=== PATIENT | female | born 1960 | race Asian ===

== ENCOUNTER 2024-04-28 21:42 | Inpatient (IN) | payer MEDICARE, MEDICAID, SELFPAY ==
[2024-04-28] VITALS (10 sets, daily range): BP systolic 94–105; BP diastolic 67–78; PULSE 118–144; RESP 16–120; TEMP 36.1–36.5; O2SAT 90–100; BMI 19.1
--- NOTE | 2024-04-28 21:45 | EDNOTE_ITS ---
ED General RME/HPI General Chief complaint: Dizziness Stated complaint: DIZZINESS, WEAKNESS Time Seen by Provider: 04/28/24 21:42 Arrival date/time: 04/28/24 21:42 CC: Nausea vomiting, weakness HPI ongoing for 3 to 4 days. Patient admits she is a diabetic EMS report tachycardic in the 130s 140s with generalized weakness. Patient denies any physical pain but admits that she is weak and nauseated. Related Data Home Medications ?Medication ?Instructions ?Recorded ?Confirmed clopidogrel 75 mg tablet 1 tab PO QDAY ##30 12/24/16 10/19/23 duloxetine 30 mg capsule,delayed 30 mg PO BID 01/27/19 10/19/23 release gabapentin 600 mg tablet 600 mg PO TID 01/27/19 10/19/23 linaclotide 145 mcg capsule 145 mcg PO QDAY 01/27/19 10/19/23 (Linzess) aspirin 81 mg chewable tablet 81 mg PO QDAY 05/20/19 10/19/23 (Aspirin Childrens) sitagliptin phosphate 100 mg 100 mg PO QDAY 05/20/19 10/19/23 tablet (Januvia) Previous Rx's ?Medication ?Instructions ?Recorded insulin lispro 100 unit/mL See Rx Instructions .Route 09/22/19 subcutaneous pen .COMPLEX #3 mL atorvastatin 40 mg tablet 40 mg PO QPM #30 tabs 01/31/20 benazepril 40 mg tablet (Lotensin) 20 mg (1/2 x 40 mg) PO QDAY #0 tabs 01/31/20 insulin detemir U-100 100 unit/mL 20 unit (0.2 mL) SQ QAM Diabetes 01/31/20 (3 mL) subcutaneous pen (Levemir #0 mL FlexTouch U-100 Insulin) metoprolol tartrate 25 mg tablet 50 mg (2 x 25 mg) PO BID #60 tabs 08/26/21 omeprazole 40 mg capsule,delayed 40 mg PO BID #30 caps 08/26/21 release blood-glucose sensor (FreeStyle #2 ea 10/08/23 Reese 3 Sensor device) metoclopramide HCl 10 mg tablet 10 mg PO Q6H PRN nausea and 10/08/23 (Reglan) vomiting #60 tabs pantoprazole 40 mg tablet,delayed 40 mg PO QDAY #30 tabs 10/08/23 release (Protonix) Allergies Allergy/AdvReac Type Severity Reaction Status Date / Time No Known Allergies Allergy Verified 08/23/21 02:20 Review of Systems Review of Systems Narrative Review of Systems: GEN: No fever, no chills, no weight loss EYES: No discharge, no visual changes, no pain HEENT: No ear pain, no congestion, no sore throat PULM: No shortness of breath, no cough, no congestion CV: No chest pain, no dyspnea on exertion, no palpitations GI: + nausea, + vomiting, no diarrhea, no pain, no constipation : No frequency, no urgency, no dysuria MUSC/SKEL: No joint pain, no back pain SKIN: No rash PSYCH: No hallucinations, no depression HEME/LYMPH: No easy bleeding or bruising tendencies NEURO: + weakness, no headache ED Exam Narrative Physical exam: [General: Thin, borderline emaciated and considerable discomfort but not in any acute distress Head normocephalic HEENT: Within acceptable limits Neck is supple nontender Chest equal chest rise nontender to palpation Respiratory: Clear to auscultation no wheezes crackles or rubs CV: Rate rhythm is regular, tachycardic, no murmurs rubs or clicks Abdomen is flat, soft nontender no masses positive bowel sounds all 4 quadrants Back: No CVA tenderness no spinous process tenderness from cervical spine thoracic and lumbar spine Skin: Intact no petechiae rash induration ulceration or crepitus Extremities: Moving all extremity against resistance cap refill less than 2 seconds neurosensory intact Neuro: Awake alert oriented x3 Glascow coma 15 no focal deficits] Course Quality Measures none Orders Category Date Time Status EKG (ED ONLY) *Do not use* NOW Care 04/28/24 21:54 Completed Saline [Insert IV] NOW Care 04/28/24 21:44 Active EKG (ED Only) Stat Exams 04/28/24 21:54 Ordered ABG [Arterial Blood Gas] Stat Lab 04/28/24 22:42 Completed B-Type Natriuretic Peptide Stat Lab 04/28/24 23:01 Completed Beta Hydroxybutyrate Stat Lab 04/28/24 22:00 Completed CBC Stat Lab 04/28/24 22:00 Completed Comprehensive Metabolic Panel Stat Lab 04/28/24 22:00 Completed Creatine Kinase Stat Lab 04/28/24 22:00 Completed Drug Screen,Urine Stat Lab 04/29/24 01:19 Completed LDH (Lactate Dehydrogenase) Stat Lab 04/28/24 22:00 Completed Magnesium Stat Lab 04/28/24 22:00 Completed Partial Thromboplastin Time Stat Lab 04/28/24 22:00 Completed Phosphorous Stat Lab 04/28/24 22:00 Completed Procalcitonin Stat Lab 04/28/24 22:00 Completed Prothrombin Time with INR Stat Lab 04/28/24 22:00 Completed Troponin I Stat Lab 04/28/24 22:00 Completed Urinalysis Stat Lab 04/29/24 01:19 Completed Ondansetron Inj [Zofran Inj] Med 04/28/24 21:44 Discontinued 4 mg IV X1 ONE Ondansetron Inj [Zofran Inj] Med 04/28/24 22:36 Discontinued 4 mg IV X1 ONE Sodium Chloride 0.9% 1000 ml [Ns] 1,000 ml Med 04/28/24 21:44 Discontinued IV 999 mls/hr Sodium Chloride 0.9% 1000 ml [Ns] 1,000 ml Med 04/28/24 21:44 Discontinued IV 999 mls/hr Vital Signs Vital signs: Vital Signs Temperature 97.0 F 04/28/24 21:50 Pulse Rate 118 H 04/28/24 21:50 Respiratory Rate 19 04/28/24 21:50 Blood Pressure 99/67 04/28/24 21:50 Pulse Oximetry (%) 98 04/28/24 21:50 Oxygen Delivery Method Room Air 04/28/24 21:50 [facility] Patient data External records reviewed:: [facility] previous records and EMS form Clinical information provided by:: patient and EMS Social determinants that could affect healthcare access:: none Patient has the following chronic illnesses:: Diabetes How is presenting disease/condition affected by chronic disease/condition?: e xacerbated by Evaluation data The following diagnostics were reviewed and interpreted by me:: lab results, radiology exam(s) and EKG tracing(s) Lab and/or radiology exams considered but not ordered:: EKG performed at 2156 shows ventricular rate of 142 QRS of 78 QTc of 372 this is sinus tachycardia. Beta hydroxy is 6.4 Interpretation Summary: DKA, intractable nausea vomiting Medications Medications considered but not ordered:: None Medication administrations:: Medication Administration History Acetaminophen (Acetaminophen 325 Mg Tablet) 650 mg PO Q6H PRN PRN Reason: Fever >101.5 Stop: 05/29/24 00:00 Acetaminophen (Acetaminophen 325 Mg Tablet) 650 mg PO Q6H PRN PRN Reason: PAIN SCALE 1-3 (mild Stop: 05/29/24 00:00 Aspirin (Aspirin Ec 81 Mg Tabec) 81 mg PO QDAY [facility] Stop: 05/29/24 09:29 Last Admin: 04/29/24 09:54 Dose: 81 mg Documented By: Atorvastatin Calcium (Atorvastatin Calcium 20 Mg Tablet) 40 mg PO HS [facility] Stop: 05/29/24 20:59 Clopidogrel Bisulfate (Clopidogrel Bisulfate 75 Mg Tablet) 75 mg PO QDAY [facility] Stop: 05/29/24 08:59 Last Admin: 04/29/24 08:13 Dose: 75 mg Documented By: Dextrose (Dextrose 50%-Water Inj 50 Ml Syringe) 25 ml IV [id number] PRN PRN Reason: Blood Sugar - Low Duloxetine HCl (Duloxetine Hcl 30 Mg Capsule) 60 mg PO QDAY [facility] Stop: 05/29/24 08:59 Last Admin: 04/29/24 08:13 Dose: 60 mg Documented By: Heparin Sodium (Porcine) (Heparin Sod Inj 5000 Unit/Ml Vial) 5,000 unit SC Q12HR [facility] Stop: 05/13/24 08:59 Last Admin: 04/29/24 08:14 Dose: 5,000 unit Documented By: Co-signed By: ISAÍAS Insulin Human Regular (Myxredlin) 100 unit in 100 mls @ 5.216 mls/hr IV .[id number] PRN; Protocol PRN Reason: PER PROTOCOL Stop: 05/28/24 23:24 Last Titration: 04/29/24 10:55 Dose: 0 unit/kg/hr, 0 mls/hr Documented By: Co-signed By: KR Titration: 04/29/24 09:00 Dose: 0.025 unit/kg/hr, 1.304 mls/hr Documented By: Co-signed By: VL Titration: 04/29/24 08:00 Dose: 0.05 unit/kg/hr, 2.608 mls/hr Documented By: Co-signed By: VL Titration: 04/29/24 07:00 Dose: 0.05 unit/kg/hr, 2.608 mls/hr Documented By: Co-signed By: VL Titration: 04/29/24 06:00 Dose: 0.05 unit/kg/hr, 2.608 mls/hr Documented By: RH Co-signed By: KAA Titration: 04/29/24 05:00 Dose: 0.025 unit/kg/hr, 1.304 mls/hr Documented By: RH Co-signed By: KAA Titration: 04/29/24 04:00 Dose: 0.025 unit/kg/hr, 1.304 mls/hr Documented By: RH Co-signed By: KAA Titration: 04/29/24 03:00 Dose: 0.025 unit/kg/hr, 1.304 mls/hr Documented By: RH Co-signed By: KAA Titration: 04/29/24 02:00 Dose: 0.025 unit/kg/hr, 1.304 mls/hr Documented By: RH Co-signed By: KAA Titration: 04/29/24 01:03 Dose: 0.05 unit/kg/hr, 2.608 mls/hr Documented By: EE Co-signed By: DB Admin: 04/29/24 00:03 Dose: 0.1 unit/kg/hr, 5.216 mls/hr Documented By: RC Co-signed By: TANMAY Potassium Chloride (Kcl Ivpb) 10 meq in 100 mls @ 100 mls/hr IV .Q1H PRN PRN Reason: IF POTASSIUM LESS THAN 3.3 Stop: 05/28/24 23:55 Last Admin: 04/29/24 04:35 Dose: 100 mls/hr Documented By: Infusion: 04/29/24 04:35 Dose: Infused Documented By: Admin: 04/29/24 03:35 Dose: 100 mls/hr Documented By: RH Magnesium Sulfate (Magnesium Sulfate Ivpb) 2 gm in 50 mls @ 25 mls/hr IV .Q2H PRN PRN Reason: PER DKA PROTOCOL Stop: 05/28/24 23:55 Insulin Human Regular 100 unit (/ IV Miscellaneous Supplies) 100 mls @ 5.216 mls/hr IV .[id number] PRN; Protocol PRN Reason: PER PROTOCOL Stop: 05/28/24 23:55 Dextrose/Lactated Ringer's (D5-Lr) 1,000 mls @ 250 mls/hr IV .Q4H PRN PRN Reason: PER PROTOCOL Stop: 05/28/24 23:55 Last Admin: 04/29/24 02:13 Dose: 250 mls/hr Documented By: ANALIA Lactated Ringer's (Lactated Ringers) 1,000 mls @ 250 mls/hr IV .Q4H PRN PRN Reason: PER PROTOCOL Stop: 04/29/24 23:55 Potassium Chloride 20 meq/ (Lactated Ringer's) 1,010 mls @ 250 mls/hr IV .Q4H3M PRN PRN Reason: K LEVEL 3.3 TO 5.3mM/L Stop: 05/28/24 23:55 Potassium Chloride 40 meq/ (Lactated Ringer's) 1,020 mls @ 250 mls/hr IV .Q4H5M PRN PRN Reason: K LEVEL < 3.3 mM/L Stop: 05/28/24 23:55 Potassium Chloride 40 meq/ (Dextrose/Lactated Ringer's) 1,020 mls @ 250 mls/hr IV .Q4H5M PRN PRN Reason: K LEVEL < 3.3mM/L Stop: 05/28/24 23:55 Potassium Cl/Dextrose/Lact Ringer's (Kcl 20 Meq/L In D5-Lr) 20 meq in 1,000 mls @ 250 mls/hr IV .Q4H PRN PRN Reason: K LEVEL 3.3 TO 5.3 mM/L Stop: 05/28/24 23:55 Last Infusion: 04/29/24 09:00 Dose: 0 mls/hr Documented By: Admin: 04/29/24 06:20 Dose: 250 mls/hr Documented By: Potassium Chloride (Kcl Ivpb) 10 meq in 100 mls @ 50 mls/hr IV PRN PRN PRN Reason: K LEVEL 3.3 to 5.3 & BG > 200 Stop: 05/28/24 23:55 Last Admin: 04/29/24 02:12 Dose: 50 mls/hr Documented By: ANALIA Potassium Phosphate (Pot Phos 15 Mmol In Ns 250 Ml) 15 mmol in 250 mls @ 62.5 mls/hr IV PRN PRN PRN Reason: Phosphate <= 1mg/dL Stop: 05/28/24 23:55 Sodium Phosphate 15 mmol/ (Sodium Chloride) 255 mls @ 62.5 mls/hr IV .Q4H5M PRN PRN Reason: Phosphate <= 1mg/dL and K> than 5.3 Stop: 05/28/24 23:55 Ceftriaxone Sodium/Dextrose (Rocephin/D5w 1gm Iv Premix) 50 mls @ 100 mls/hr IV HS [facility] Stop: 05/06/24 00:25 Potassium Phosphate (Pot Phos 15 Mmol In Ns 250 Ml) 15 mmol in 250 mls @ 62.5 mls/hr IV Q4H [facility] Stop: 04/29/24 16:50 Last Admin: 04/29/24 08:59 Dose: 62.5 mls/hr Documented By: MR Insulin Glargine (Insulin Glargine (Lantus) 5 Unit/0.05 Ml (Per 5 Units)) 20 unit SC QDAY [facility] Stop: 05/29/24 09:14 Last Admin: 04/29/24 09:54 Dose: 20 unit Documented By: MR Co-signed By: LARISSA Lisinopril (Lisinopril 20 Mg Tablet) 40 mg PO QDAY [facility] Stop: 05/29/24 08:59 Last Admin: 04/29/24 08:13 Dose: 40 mg Documented By: MR Metoprolol Succinate (Metoprolol Succinate Xl 25 Mg Tabcr) 100 mg PO QDAY [facility] Stop: 05/29/24 08:59 Last Admin: 04/29/24 08:12 Dose: 100 mg Documented By: MR Morphine Sulfate (Morphine Sulf Inj 10 Mg/Ml Vial) 2 mg IVP Q2H PRN PRN Reason: PAIN SCALE 7-10 (Severe Stop: 05/04/24 00:00 Ondansetron HCl (Ondansetron Inj 2 Mg/Ml Inj 2 Ml) 4 mg IV Q6H PRN; Protocol PRN Reason: NAUSEA OR VOMITING Stop: 05/29/24 00:00 Pantoprazole Sodium (Pantoprazole Inj 40 Mg Vial) 40 mg IVP QDAY [facility] Stop: 05/29/24 00:04 Last Admin: 04/29/24 08:13 Dose: 40 mg Documented By: Admin: 04/29/24 01:27 Dose: 40 mg Documented By: CCT Potassium Phos/Sodium Phos ([facility] 1 Packet (1.5 Gm)) 2 packet PO BID GIOVANNA Stop: 05/03/24 09:29 Last Admin: 04/29/24 09:54 Dose: 2 packet Documented By: Sennosides (Senna Tablet) 1 tab PO QDAY GIOVANNA; Protocol Stop: 05/29/24 08:59 Last Admin: 04/29/24 08:14 Dose: 1 tab Documented By: Sodium Bicarbonate (Sodium Bicarb Inj 8.4% Syr 50 Ml Syringe) 50 ml IV PRN PRN PRN Reason: For ph <= to 7.0 Stop: 05/28/24 23:55 Tramadol HCl (Tramadol Hcl 50 Mg Tablet) 50 mg PO Q6HR PRN PRN Reason: PAIN SCALE 4-6 (Moderate Stop: 05/04/24 00:00 Discontinued Medications Sodium Chloride (Ns) 1,000 mls @ 999 mls/hr IV .Q1H1M ONE Stop: 04/28/24 22:44 Last Infusion: 04/28/24 23:36 Dose: Infused Documented By: Admin: 04/28/24 21:57 Dose: 999 mls/hr Documented By: CCT Sodium Chloride (Ns) 1,000 mls @ 999 mls/hr IV .Q1H1M ONE Stop: 04/28/24 22:44 Last Infusion: 04/29/24 00:38 Dose: Infused Documented By: Admin: 04/28/24 21:57 Dose: 999 mls/hr Documented By: CCT Lactated Ringer's (Lactated Ringers) 1,000 mls @ 999 mls/hr IV .Q1H1M ONE Stop: 04/29/24 00:19 Last Admin: 04/29/24 00:35 Dose: 999 mls/hr Documented By: CMN(2) Ceftriaxone Sodium/Dextrose (Rocephin/D5w 1gm Iv Premix) 50 mls @ 100 mls/hr IV X1 ONE Stop: 04/29/24 00:59 Last Admin: 04/29/24 01:48 Dose: 100 mls/hr Documented By: CCT Ondansetron HCl (Ondansetron Inj 2 Mg/Ml Inj 2 Ml) 4 mg IV X1 ONE; Protocol Stop: 04/28/24 21:45 Last Admin: 04/28/24 22:40 Dose: Not Given Documented By: CCT Non-Admin Reason: Cancelled by Provider Ondansetron HCl (Ondansetron Inj 2 Mg/Ml Inj 2 Ml) 4 mg IV X1 ONE; Protocol Stop: 04/28/24 22:37 Last Admin: 04/28/24 22:41 Dose: 4 mg Documented By: CCT None Consultations Consultation(s) initiated? (list below): No Diagnosis Differential Diagnosis ED Complaint MDM: DKA gastroparesis renal failure Most likely diagnosis given after review of the tests above:: DKA nausea vomiting Admission Indicated Admission indicated?: indicated Explain why admission is indicated or not indicated:: Quires further medical management Admission Request Was there a request for admission?: No Disposition Plan Disposition Plan: Admit Medical Decision Making Differential Diagnosis Differential Diagnosis: DKA gastroparesis renal failure Lab Data 04/29/24 07:53 04/29/24 07:53 Labs: Lab Results 04/28/24 04/28/24 04/28/24 Range/Units 22:00 22:42 23:01 WBC 21.0 H (3.6-11.0) Thou/mm3 RBC 5.16 (4.00-5.20) Miln/mm3 Hgb 15.0 (12.0-16.0) g/dL Hct 44.8 (36.0-46.0) % MCV 87 (80-100) fL MCH 29.1 (25.0-35.0) pg MCHC 33.5 (31.0-37.0) g/dl RDW Std Deviation 45.1 (36.4-46.3) fL Plt Count 287 (140-440) Thou/mm3 Neut % (Auto) 85 H (37-80) % Lymph % (Auto) 8 L (10-50) % [place] % (Auto) 6 (0-12) % Eos % (Auto) 0 (0-10) % Baso % (Auto) 0 (0-2.5) % Neut # (Auto) 17.8 H (1.8-7.7) Thou/mm3 Lymph # (Auto) 1.8 (1.0-4.8) Thou/mm3 [place] # (Auto) 1.3 H (0.0-0.8) Thou/mm3 Eos # (Auto) 0.0 (0.0-0.5) Thou/mm3 Baso # (Auto) 0.0 (0.0-0.2) Thou/mm3 Immature Gran # (Auto) 0.09 H (0.00-0.00) Thou/mm3 Absolute Nucleated RBC 0.00 (0.00-0.00) Thou/mm3 Immature Gran % 0 (0-0) % Nucleated RBC % 0 (0) /100 WBC PT 9.7 (9.0-12.2) Seconds INR 0.9 (0.9-1.3) APTT 25.9 (22.0-36.0) Seconds Puncture Site Right Brachial ABG pH 7.29 L (7.35-7.45) ABG pCO2 19 L* (32.0-48.0) mmHg ABG pO2 122 H (83-108) mmHg ABG HCO3 9 L* (20-26) mEq/L ABG O2 Saturation 98 (91-98) % ABG Base Excess -15 L (-3-3) FiO2 21 % Sodium 131 L (136-145) mMol/L Potassium 4.5 (3.4-5.1) mMol/L Chloride 97 L (98-107) mMol/L Carbon Dioxide < 10.0 L* (20.0-31.0) mMol/L Anion Gap 24 H (7-16) BUN 41 H (9-23) mg/dL Creatinine 1.5 H (0.6-1.3) mg/dL Estim Creat Clear Calc 32.4 L (>60) mL/min eGFR 39 L (60 - ) See Note BUN/Creatinine Ratio 27 H (12-20) Ratio Glucose 313 H (74-106) mg/dL Calculated Osmolality 284 (275-295) Calcium 10.8 H (8.3-10.6) mg/dL Corrected Calcium 10.8 H (8.5-10.1) mg/dL Phosphorus 4.5 (2.4-5.1) mg/dL Magnesium 2.7 H (1.6-2.6) mg/dL Total Bilirubin 0.8 (0.3-1.2) mg/dL AST < 8 (0-34) U/L ALT < 7 L (10-49) U/L Alkaline Phosphatase 81 (46-116) U/L Lactate Dehydrogenase 247 H (120-246) U/L Total Creatine Kinase 56 (34-171) U/L Troponin I 0.450 H* (0.0-0.045) ng/mL B-Natriuretic Peptide 581 H* (0-100) pg/mL Total Protein 7.5 (5.7-8.2) gm/dL Albumin 4.3 (3.4-4.8) gm/dL Globulin 3.2 (2.3-3.5) gm/dL Albumin/Globulin Ratio 1.3 (1.2-2.2) Beta-Hydroxybutyrate/Acetoacetate 6.4 H (<0.6) mmol/L Procalcitonin 0.61 H (0.0-0.49) ng/ml Discharge Plan Plan Patient Disposition: Admit Acute Care w/in Hospital Patient condition on transfer: Stable Problem List Clinical Impression: DKA (diabetic ketoacidoses), Intractable nausea and vomiting PA/HOSPITAL CLINIC ASSISTANT Supervising Physician PA/HOSPITAL CLINIC ASSISTANT Supervising Physician: Ismael Jerez ENP
[2024-04-28] MEDS: SODIUM CHLORIDE 0.9% 1000 ML 1,000 ML 999 ML IV ×2 (21:57)
[2024-04-28 22:14] LABS: Basophils % (Auto) 0 % (0-2.5); Eosinophils % (Auto) 0 % (0-10); Hematocrit 44.8 % (36.0-46.0); Immature Granulocytes % (Auto) 0 % (0-0); Immature Granulocytes Auto 0.09 Thou/mm3 (0.00-0.00); Lymphocytes # (Auto) 1.8 Thou/mm3 (1.0-4.8); Lymphocytes % (Auto) 8 % (10-50); Mean Corpuscular HGB Conc 33.5 g/dl (31.0-37.0); Mean Corpuscular Hemoglobin 29.1 pg (25.0-35.0); Mean Corpuscular Volume 87 fL (80-100); Monocytes # (Auto) 1.3 Thou/mm3 (0.0-0.8); Monocytes % (Auto) 6 % (0-12); Neutrophils # (Auto) 17.8 Thou/mm3 (1.8-7.7); Neutrophils % (Auto) 85 % (37-80); Nucleated Red Blood Cell % 0 /100 WBC (0); Platelet Count 287 Thou/mm3 (140-440); RDW Standard Deviation 45.1 fL (36.4-46.3); Red Blood Count 5.16 Miln/mm3 (4.00-5.20)
[2024-04-28 22:25] LABS: Beta Hydroxybutyrate 6.4 mmol/L (<0.6)
--- NOTE | 2024-04-28 22:39 | PD.EDADDENDU ---
Emergency Room Addendum Addendum Narrative: 223: Care assumed from Ismael Jerez NP. Past medical, surgical, social and family history reviewed. Vitals and home medications reviewed. Results and treatment plan discussed. I will assume the care of the patient at this time and will follow the patient. Please refer to the emergency department record for history and examination from initial visit. WBC count is elevated at 21.0, Carbon Dioxide is less than 10, Glucose is 313, Anion Gap is 24, Creatinine is 1.5, Troponin is elevated at 0.450, Procalcitonin is elevated at 0.61, Beta Hydroxybutyrate is elevated at 6.4, according to my interpretation. Will consult an admission to the hospitalist. 2338: Discussed case with [Dr. Skelton] from Hospitalist service regarding admission. Discussed patients ED course, exam findings, labs, and radiology results. The Hospitalist [agrees] to accept the patient for admission. Critical Care Time: 45 minutes The high probability of sudden, clinically significant deterioration in the patient?s condition required the highest level of my preparedness to intervene urgently. The services I provided to this patient were to treat and/or prevent clinically significant deterioration. Services included the following: chart data review, reviewing nursing notes and/or old charts, documentation time, industrial rehabilitation consultant collaboration regarding findings and treatment options, medication orders and management, direct patient care, vital sign assessments and ordering, interpreting and reviewing diagnostic studies and lab tests. Aggregate critical care time includes only time during which I was engaged in work directly related to the patient?s care, as described above, whether at bedside or elsewhere in the Emergency Department. It did not include time spent performing other reported procedures or the services of residents, students, nurses or physician assistants.
[2024-04-28] MEDS: ONDANSETRON INJ 2 MG/ML INJ 2 ML 4 MG IV (22:41)
[2024-04-28 22:47] LABS: Base Excess -15 (-3-3); HCO3 9 mEq/L (20-26); Inspired Oxygen, FIO2 21 %; O2 Saturation 98 % (91-98); PCO2 19 mmHg (32.0-48.0); PO2 122 mmHg (83-108); pH, Arterial 7.29 (7.35-7.45)
[2024-04-28 22:48] LABS: Allen Test Performed/OK; Puncture Site Right Brachial
[2024-04-28 22:51] LABS: INR 0.9 (0.9-1.3); Partial Thromboplastin Time 25.9 Seconds (22.0-36.0); Prothrombin Time 9.7 Seconds (9.0-12.2)
[2024-04-28 23:12] LABS: Alanine Aminotransferase < 7 U/L (10-49); Albumin, Serum 4.3 gm/dL (3.4-4.8); Albumin/Globulin Ratio 1.3 (1.2-2.2); Alkaline Phosphatase 81 U/L (46-116); Anion Gap 24 (7-16); Aspartate Amino Transferase < 8 U/L (0-34); BUN/Creatinine Ratio 27 Ratio (12-20); Bilirubin,Total 0.8 mg/dL (0.3-1.2); Blood Urea Nitrogen 41 mg/dL (9-23); Calcium 10.8 mg/dL (8.3-10.6); Calcium (Corrected) 10.8 mg/dL (8.5-10.1); Chloride 97 mMol/L (98-107); Creatine Kinase 56 U/L (34-171); Creatinine (Component) 1.5 mg/dL (0.6-1.3); Estimated Creatinine Clearance 32.4 mL/min (>60); Globulin 3.2 gm/dL (2.3-3.5); Glucose 313 mg/dL (74-106); Magnesium 2.7 mg/dL (1.6-2.6); Osmolality,Calculated 284 (275-295); Potassium 4.5 mMol/L (3.4-5.1); Procalcitonin 0.61 ng/ml (0.0-0.49); Sodium 131 mMol/L (136-145); Total Protein 7.5 gm/dL (5.7-8.2); eGFR 39 See Note
[2024-04-28 23:15] LABS: Carbon Dioxide < 10.0 mMol/L (20.0-31.0)
--- NOTE | 2024-04-28 23:18 | XR_ITS ---
Examination: AP chest single view Technique: AP portable upright chest single view Exam date and time: April 28, 2024 11:29 PM Comparison October 19, 2023 Indications: Admission chest x-ray, history chest pain shortness of breath September 2023 Findings: Normal heart size Lungs are clear Moderate osteopenia Impression: No active disease
[2024-04-29] VITALS (25 sets, daily range): BP systolic 109–146; BP diastolic 62–90; PULSE 99–149; RESP 13–99; TEMP 36.1–36.6; O2SAT 93–100; BMI 29.2
[2024-04-29] MEDS: INSULIN REG 100 UNITS/100 ML 100 UNIT/100 ML BAG 5.216 UNIT IV (00:03)
--- NOTE | 2024-04-29 00:05 | ECHO_ITS ---
Transthoracic Echo Report Ht (in): 65 Wt (lb): 115 Exam Location: Portable Status: Inpatient Ground Layer: Mitzy Bull Indications: Procedure Performed: BP: 146 / 89 HR: 149 Rhythm: Tachycardia Technical Quality: Fair MEASUREMENTS (Male / Female) Normal Values 2D ECHO LV Diastolic Diameter PLAX 3.6 cm 4.2 - 5.9 / 3.9 - 5.3 cm LV Systolic Diameter PLAX 2.6 cm IVS Diastolic Thickness 0.9 cm 0.6 - 1.0 / 0.6 - 0.9 cm LVPW Diastolic Thickness 1.1 cm 0.6 - 1.0 / 0.6 - 0.9 cm LV Relative Wall Thickness 0.6 LVOT Diameter 1.6 cm LA Volume Index 15.6 cm?/m? 16 - 28 cm?/m? Ascending Aorta Diameter 3.1 cm M-MODE Aortic Root Diameter MM 2.8 cm LA Systolic Diameter MM 2.9 cm LA Ao Ratio MM 1.0 AV Cusp Separation MM 1.8 cm DOPPLER AV Peak Velocity 116.0 cm/s AV Peak Gradient 5.4 mmHg AV Mean Gradient 3.0 mmHg AV Velocity Time Integral 17.7 cm LVOT Peak Velocity 106.0 cm/s LVOT Peak Gradient 4.5 mmHg LVOT Velocity Time Integral 18.5 cm LVOT Cardiac Index 3597.5 cm?/min?m? AV Area Cont Eq vti 2.1 cm? AV Area Cont Eq pk 1.8 cm? MV Peak Velocity 110.0 cm/s MV Peak Gradient 4.8 mmHg MV Mean Velocity 64.9 cm/s MV Mean Gradient 2.0 mmHg MV Area PHT 6.3 cm? Mitral E Point Velocity 71.3 cm/s Mitral A Point Velocity 110.0 cm/s Mitral E to A Ratio 0.6 LV E' Lateral Velocity 8.1 cm/s Mitral E to LV E' Lateral Ratio 8.9 LV E' Septal Velocity 4.8 cm/s Mitral E to LV E' Septal Ratio 14.9 TR Peak Velocity 197.0 cm/s TR Peak Gradient 15.5 mmHg FINDINGS Left Ventricle Normal left ventricular size, wall thickness, systolic function with no obvious regional wall motion abnormalities. The ejection fraction is visually estimated at 50-55%. Right Ventricle The right ventricle is normal in size and systolic function. The estimated right ventricular systoli c pressure, 20 mmHg. RAP 5. Left Atrium The left atrium is normal by two-dimensional, color flow and Doppler imaging with no structural abnormalities, no thrombus formation present. Right Atrium The right atrium is normal by two-dimensional imaging, color flow and Doppler imaging with no struct ural abnormalities, no thrombus formation present. Atrial Septum The interatrial septum appears normal with no evidence of a shunt. Aorta The aorta is normal by two-dimensional, color flow and Doppler interrogation. Mitral Valve The mitral valve is normal by two-dimensional, color flow and Doppler interrogation. There is trace mitral valve regurgitation. Aortic Valve The aortic valve is trileaflet and normal by two-dimensional, color flow and Doppler interrogation. There is no significant aortic valve regurgitation. Tricuspid Valve The tricuspid valve is normal by two-dimensional, color flow and Doppler interrogation. There is tra ce tricuspid valve regurgitation. Pulmonic Valve The pulmonic valve is not well visualized. There is no significant pulmonic valve regurgitation. Vessels The pulmonary artery appears normal. The inferior vena cava pulmonary and hepatic veins appear bo l. Pericardium The pericardium is normal by two-dimensional imaging. There is no significant pericardial effusion. CONCLUSIONS Indication: Stent and MS The transthoracic study is normal by two-dimensional, color flow imaging and Doppler interrogation. Normal LV size and function. LV EF 55-60% Normal RV size and function Trace mitral and trace tricuspid regurgitation Missy Walker (Electronically Signed) Final Date: 29 April 2024 17:06
--- NOTE | 2024-04-29 00:14 | ESHP_ITS ---
Documentation for date of: 04/29/24 [facility] History of Present Illness Chief complaint: intractable nausea and decreased appetite History of present illness: Patient is a 63-year-old female with past medical history significant for type 2 diabetes, hyperlipidemia, hypertension, CAD status post 1 cardiac stent in LAD, and KS, depression, anxiety, presented to the ED for having vomiting for the last 4 days. Associated symptoms include lightheadedness, decreased appetite as well as itchy throat that started also 4 days ago. Patient denies any abdominal pain, sweating, chills, chest pain, dysuria, shortness of breath, cough, sick contacts, diarrhea, constipation. She reports taking all her medications last night, except for her insulin. ROS: As mentioned above Past medical history: As mentioned above Past surgical history: hand surgeries Medications: Insulin 8 units Lantus daily, metformin 1000 mg twice daily, cyclobenzaprine 5 mg daily, atorvastatin 40 mg at bedtime, Plavix 75 mg daily, duloxetine 60 mg daily, Farxiga 10 mg daily, Zofran, metoprolol succinate 100 mg daily, meclizine 25 mg as needed Social history: Patient has a 30 pack smoking history, however quit smoking 20 years ago. Patient denies any alcohol or illicit drug use. Family history: Diabetes in 3 siblings and son, stroke in aunt Allergies: NKDA Patient was admitted to ICU for further management of DKA. Review of Systems Review of Systems Systems Reviewed: All systems reviewed, normal except as documented Exam Vital Signs Temp Pulse Resp BP Pulse Ox O2 Del Method 97.0 F 144 H 18 94/78 100 Room Air 04/28/24 22:50 04/28/24 22:50 04/28/24 22:50 04/28/24 22:50 04/28/24 22:50 04/28/24 22:50 Narrative Exam General Appearance: Pt in mild acute distress laying comfortably in bed. HEENT: NC/AT, no scleral icterus, no conjunctival pallor, dry mucous membranes. Lungs: CTAB, no wheezes or crackles appreciated. CVS: RRR, S1/S2 heard, no murmurs or rubs appreciated. ABD: Soft, non-tender, non-distended, BS + in all 4 quadrants. EXT: No deformity/edema/lesions/cyanosis/clubbing, radial pulses 2+ BL, DP pulses 2 + BL. SKIN: Skin exam normal without any rashes. Neuro: A&O x 3. No gross neurological deficits. Motor and sensory grossly intact in B/L UL and LL. Psych: Appropriate mood and affect Results: Labs 04/28/24 22:00 04/29/24 02:51 Labs: Short CBC 04/28/24 Range/Units 22:00 WBC 21.0 H (3.6-11.0) Thou/mm3 Hgb 15.0 (12.0-16.0) g/dL Hct 44.8 (36.0-46.0) % Plt Count 287 (140-440) Thou/mm3 BMP 04/28/24 22:00 Sodium 131 L Potassium 4.5 Chloride 97 L Carbon Dioxide < 10.0 L* BUN 41 H Creatinine 1.5 H Glucose 313 H Calcium 10.8 H Cardiac Enzymes 04/28/24 Range/Units 22:00 Total Creatine Kinase 56 (34-171) U/L Troponin I 0.450 H* (0.0-0.045) ng/mL Liver Function 04/28/24 Range/Units 22:00 Total Bilirubin 0.8 (0.3-1.2) mg/dL AST < 8 (0-34) U/L ALT < 7 L (10-49) U/L Alkaline Phosphatase 81 (46-116) U/L Albumin 4.3 (3.4-4.8) gm/dL ABG Interpretation ABG results: 04/28/24 22:42 ABG pH 7.29 L ABG pCO2 19 L* ABG pO2 122 H ABG HCO3 9 L* ABG O2 Saturation 98 ABG Base Excess -15 L Quality Measures Quality Measures VTE prophylaxis Medications Home Medications and Allergies Home Medications ?Medication ?Instructions ?Recorded ?Confirmed ?Type clopidogrel 75 mg tablet 1 tab PO QDAY ##30 12/24/16 10/19/23 History duloxetine 30 mg capsule,delayed 30 mg PO BID 01/27/19 10/19/23 History release gabapentin 600 mg tablet 600 mg PO TID 01/27/19 10/19/23 History linaclotide 145 mcg capsule 145 mcg PO QDAY 01/27/19 10/19/23 History (Linzess) aspirin 81 mg chewable tablet 81 mg PO QDAY 05/20/19 10/19/23 History (Aspirin Childrens) sitagliptin phosphate 100 mg 100 mg PO QDAY 05/20/19 10/19/23 History tablet (Januvia) Allergies Allergy/AdvReac Type Severity Reaction Status Date / Time No Known Allergies Allergy Verified 08/23/21 02:20 Visit Medications Acetaminophen (Acetaminophen 325 Mg Tablet) 650 mg PO Q6H PRN PRN Reason: Fever >101.5 Stop: 05/29/24 00:00 Acetaminophen (Acetaminophen 325 Mg Tablet) 650 mg PO Q6H PRN PRN Reason: PAIN SCALE 1-3 (mild Stop: 05/29/24 00:00 Atorvastatin Calcium (Atorvastatin Calcium 20 Mg Tablet) 40 mg PO HS GIOVANNA Stop: 05/29/24 20:59 Clopidogrel Bisulfate (Clopidogrel Bisulfate 75 Mg Tablet) 75 mg PO QDAY [facility] Stop: 05/29/24 08:59 Dextrose (Dextrose 50%-Water Inj 50 Ml Syringe) 25 ml IV [id number] PRN PRN Reason: Blood Sugar - Low Duloxetine HCl (Duloxetine Hcl 30 Mg Capsule) 60 mg PO QDAY [facility] Stop: 05/29/24 08:59 Heparin Sodium (Porcine) (Heparin Sod Inj 5000 Unit/Ml Vial) 5,000 unit SC Q12HR GIOVANNA Stop: 05/13/24 08:59 Lactated Ringer's (Lactated Ringers) 1,000 mls @ 999 mls/hr IV .Q1H1M ONE Stop: 04/29/24 00:19 Insulin Human Regular (Myxredlin) 100 unit in 100 mls @ 5.216 mls/hr IV .[id number] PRN; Protocol PRN Reason: PER PROTOCOL Stop: 05/28/24 23:24 Last Admin: 04/29/24 00:03 Dose: 0.1 unit/kg/hr, 5.216 mls/hr Potassium Chloride (Kcl Ivpb) 10 meq in 100 mls @ 100 mls/hr IV .Q1H PRN PRN Reason: IF POTASSIUM LESS THAN 3.3 Stop: 05/28/24 23:55 Magnesium Sulfate (Magnesium Sulfate Ivpb) 2 gm in 50 mls @ 25 mls/hr IV .Q2H PRN PRN Reason: PER DKA PROTOCOL Stop: 05/28/24 23:55 Insulin Human Regular 100 unit (/ IV Miscellaneous Supplies) 100 mls @ 5.216 mls/hr IV .[id number] PRN; Protocol PRN Reason: PER PROTOCOL Stop: 05/28/24 23:55 Dextrose/Lactated Ringer's (D5-Lr) 1,000 mls @ 250 mls/hr IV .Q4H PRN PRN Reason: PER PROTOCOL Stop: 05/28/24 23:55 Lactated Ringer's (Lactated Ringers) 1,000 mls @ 250 mls/hr IV .Q4H PRN PRN Reason: PER PROTOCOL Stop: 04/29/24 23:55 Potassium Chloride 20 meq/ (Lactated Ringer's) 1,010 mls @ 250 mls/hr IV .Q4H3M PRN PRN Reason: K LEVEL 3.3 TO 5.3mM/L Stop: 05/28/24 23:55 Potassium Chloride 40 meq/ (Lactated Ringer's) 1,020 mls @ 250 mls/hr IV .Q4H5M PRN PRN Reason: K LEVEL < 3.3 mM/L Stop: 05/28/24 23:55 Potassium Chloride 40 meq/ (Dextrose/Lactated Ringer's) 1,020 mls @ 250 mls/hr IV .Q4H5M PRN PRN Reason: K LEVEL < 3.3mM/L Stop: 05/28/24 23:55 Potassium Cl/Dextrose/Lact Ringer's (Kcl 20 Meq/L In D5-Lr) 20 meq in 1,000 mls @ 250 mls/hr IV .Q4H PRN PRN Reason: K LEVEL 3.3 TO 5.3 mM/L Stop: 05/28/24 23:55 Potassium Chloride (Kcl Ivpb) 10 meq in 100 mls @ 50 mls/hr IV PRN PRN PRN Reason: K LEVEL 3.3 to 5.3 & BG > 200 Stop: 05/28/24 23:55 Potassium Phosphate (Pot Phos 15 Mmol In Ns 250 Ml) 15 mmol in 250 mls @ 62.5 mls/hr IV PRN PRN PRN Reason: Phosphate <= 1mg/dL Stop: 05/28/24 23:55 Sodium Phosphate 15 mmol/ (Sodium Chloride) 255 mls @ 62.5 mls/hr IV .Q4H5M PRN PRN Reason: Phosphate <= 1mg/dL and K> than 5.3 Stop: 05/28/24 23:55 Lisinopril (Lisinopril 20 Mg Tablet) 40 mg PO QDAY [facility] Stop: 05/29/24 08:59 Metoprolol Succinate (Metoprolol Succinate Xl 25 Mg Tabcr) 100 mg PO QDAY [facility] Stop: 05/29/24 08:59 Morphine Sulfate (Morphine Sulf Inj 10 Mg/Ml Vial) 2 mg IVP Q2H PRN PRN Reason: PAIN SCALE 7-10 (Severe Stop: 05/04/24 00:00 Ondansetron HCl (Ondansetron Inj 2 Mg/Ml Inj 2 Ml) 4 mg IV Q6H PRN; Protocol PRN Reason: NAUSEA OR VOMITING Stop: 05/29/24 00:00 Pantoprazole Sodium (Pantoprazole Inj 40 Mg Vial) 40 mg IVP QDAY [facility] Stop: 05/29/24 00:04 Sennosides (Senna Tablet) 1 tab PO QDAY [facility]; Protocol Stop: 05/29/24 08:59 Sodium Bicarbonate (Sodium Bicarb Inj 8.4% Syr 50 Ml Syringe) 50 ml IV PRN PRN PRN Reason: For ph <= to 7.0 Stop: 05/28/24 23:55 Tramadol HCl (Tramadol Hcl 50 Mg Tablet) 50 mg PO Q6HR PRN PRN Reason: PAIN SCALE 4-6 (Moderate Stop: 05/04/24 00:00 Discontinued Medications Sodium Chloride (Ns) 1,000 mls @ 999 mls/hr IV .Q1H1M ONE Stop: 04/28/24 22:44 Last Infusion: 04/28/24 23:36 Dose: Infused Sodium Chloride (Ns) 1,000 mls @ 999 mls/hr IV .Q1H1M ONE Stop: 04/28/24 22:44 Last Admin: 04/28/24 21:57 Dose: 999 mls/hr Ondansetron HCl (Ondansetron Inj 2 Mg/Ml Inj 2 Ml) 4 mg IV X1 ONE; Protocol Stop: 04/28/24 21:45 Last Admin: 04/28/24 22:40 Dose: Not Given Ondansetron HCl (Ondansetron Inj 2 Mg/Ml Inj 2 Ml) 4 mg IV X1 ONE; Protocol Stop: 04/28/24 22:37 Last Admin: 04/28/24 22:41 Dose: 4 mg Assessment & Plan Plan Patient is a 63-year-old female with past medical history significant for type 2 diabetes, hyperlipidemia, hypertension, CAD status post 1 cardiac stent in LAD, and KS, depression, anxiety, presented to the ED for having vomiting for the last 4 days admitted to ICU for further management of DKA. NEURO #Hx of CVA CVA in 2014 and 2018, and TIA in 2019 Currently A&O x 3, stable Patient states she stopped taking aspirin -Continue with Plavix 75mg QD #Hx of vertigo Patient takes home Meclizine as needed -Consider resuming if patient complaints of symptoms CARDIO #Elevated Troponin DDx: most likely due to demand ischemia 2/2 hypovolemic status Patient given a total of 2L NS and 1L LR bolus -Ordered EKG -Trend Troponin Q8h #Hx of CAD s/p LAD stent #Hx of HTN #Hx of HLD Elevated BNP of 581. Bedside echo shows EF of 55-60% -Continue with Plavix 75mg QD, Metoprolol Succinate 100mg QD, and Atorvastatin 40mg HS -Patient takes home Benzapril, and will start dose equivalent dose with Lisinopril -Last echo was in 10/11, and ordered repeat Echo PULM No active issues GI/FEN #Intractable nausea -Continue with Zofran PRN -Will keep patient NPO for now -Started IV PPI for GI Ulcer prophylaxis RENAL #Diabetic ketoacidosis #Anion gap metabolic acidosis #Hypovolemic hyperosmolar hyponatremia #Dehydration Lactic acid 1.3 on admission. Na 131, Cl 97, K 4.5, CO2 <10, anion gap 24, glucose 313, osmolality 284, beta-hydroxybutyrate 6.4. Initial ABG pH 7.29, pCO2 19, pO2 122. Patient has received 2L NS and 1L LR on admission. -Lactate q4h -Renal function panel q4h -Mag, Phos q4h -K, Mag, and Phos replacement protocols -DKA maintenance fluid protocol -Strict intake and output #RONNY On admission creatinine 1.5 with baseline Cr 0.6-8. Likely prerenal ischemia secondary to DKA dehydration. Bedside echo showed IVC about 1.6cm and collapsible Patient given an additional 1L LR bolus in the ED -DKA maintenance fluid protocol -Monitor renal panel q4h HEME/ONC #Leukocytosis Initial WBC elevated at 21. Secondary to dehydration, stress of DKA, less likely infection. Patient denies any cough or SOB but states she has an itchy throat. Centor criteria 1. Previous hx of UTI, but UA negative for UTI during this admission. Pro-jose elevated at 0.61 CXR showed no active disease. -Continue to monitor daily CBC -Blood cultures pending -Started Empirically on Rocephin 1g QD -Ordered bedside Strep A, Influenza and COVID ENDO #Severe hyperglycemia #Diabetic ketoacidosis #Diabetes Mellitus, most likely type 2 #Diabetic Neuropathy Anion gap 24, glucose 313 , osmolality 284, lactic acid 1.3, beta- hydroxybutyrate 6.4. Last A1c 8.1% in September, patient normally takes Lantus 8 QD, Metformin 1000mg BID, Farxiga 10mg -Insulin protocol: 0.05 U/kg/hr for any BG >200, 0.025 U/kg/hr for BG 100-149, infusion off for BG <99. -Goal is reduction of BG by 50-75 per hour to avoid cerebral edema -DKA maintenance fluid protocol -Once AG has closed x2 will transition to subq insulin -NPO -Resume home Duloxetine when patient able to tolerate -Will hold off on Farxiga and Metformin ID See above in Heme/Onc MSK #Hx of Muscle Spasms -Resume home Cyclobenzaprine when able PSYCH #Hx of Anxiety and Depression -Resumed home Duloxetine 60mg QD Health Maintenance: DVT prophylaxis: Heparin SC Diet: NPO Cadet: Yes Lines: PIV Drips: N/A Vent: N/A CODE STATUS: Full code Disposition: Admitted to ICU for DKA Management Patient's care and plan discussed with my attending, Dr. Skelotn. Inés Camargo, PGY-2 Attending Provider Attestation/Addendum Pt was evaluated and plan formulated together with the housestaff team. I have reviewed the residents note above and agree with most of its content. Please refer to the residents note for additional details. The patient reports not feeling well over the past few days and missed her insulin doses. Initial lab results showed: * WBC: 21 * Anion gap: 24 * Carbon dioxide: <10 * Creatinine: 1.5 * Glucose: 313 The patient will be admitted for the management of diabetic ketoacidosis.
[2024-04-29 00:33] LABS: B-Type Natriuretic Peptide 581 pg/mL (0-100)
[2024-04-29] MEDS: RINGERS LACTATED 1000 ML 1,000 ML 999 ML IV (00:35)
[2024-04-29 00:57] LABS: LDH (Lactate Dehydrogenase) 247 U/L (120-246); Phosphorous 4.5 mg/dL (2.4-5.1)
[2024-04-29 00:58] LABS: Lactate (Lactic Acid) 1.3 mMol/L (0.4-2.0)
[2024-04-29] MEDS: PANTOPRAZOLE INJ 40 MG VIAL IVP ×2 (01:27→08:13)
--- NOTE | 2024-04-29 01:42 | PC.NURSE ---
Report given to DANA Ahm[facility] ICU
[2024-04-29] MEDS: cefTRIAXone/D5w 1gm IV premix 50 ML IV ×2 (01:48→21:49)
[2024-04-29] MEDS: POTASSIUM CHL 10 mEq IVPB 10 MEQ/100 ML BAG 50 MEQ IV (02:12)
[2024-04-29] MEDS: DEXTROSE 5%-LACTATED RINGERS 1,000 ML 250 ML IV (02:13)
[2024-04-29 03:21] LABS: Collection Type, Urine Clean Catch
[2024-04-29 03:29] LABS: Bilirubin,Urine Negative (Negative); Blood,Urine Negative (Negative); Clarity,Urine Clear (Clear/Hazy); Color,Urine Colorless (Lt Yel-Yel); Glucose, Urine 4+ (Negative); Hyaline Casts,Urine < 1 /hpf (0-1); Ketones,Urine 4+ (Negative); Leukocyte Esterase,Urine Negative (Negative); Nitrite,Urine Negative (Negative); PH,Urine 5.5 (5.0-7.0); Protein,Urine Trace (Neg - Trace); RBC,Urine < 1 /hpf (0-3); Specific Gravity,Urine 1.028 (1.001-1.035); Squamous Epithelial Cell,Urine < 1 /hpf (0-5); Urobilinogen,Urine Negative mg/dL (0.0-1.0); WBC,Urine 2 /hpf (0-5)
[2024-04-29] MEDS: POTASSIUM CHL 10 mEq IVPB 10 MEQ/100 ML BAG 100 MEQ IV ×2 (03:35→04:35)
[2024-04-29 03:39] LABS: Amphetamine/Methamp Scrn,U Negative (Negative); Barbiturate Screen,Urine Negative (Negative); Benzodiazepines Screen,Urine Negative (Negative); Benzoylecgonine Screen, Ur Negative (Negative); Fentanyl Screen,Urine Negative (Negative); Opiate Screen,Urine Negative (Negative); THC Screen,Urine Positive (Negative)
[2024-04-29 03:49] LABS: Anion Gap 14 (7-16); Blood Urea Nitrogen 32 mg/dL (9-23); Chloride 108 mMol/L (98-107); Glucose 118 mg/dL (74-106); Magnesium 2.1 mg/dL (1.6-2.6); Osmolality,Calculated 279 (275-295); Phosphorous 1.7 mg/dL (2.4-5.1); Potassium 4.1 mMol/L (3.4-5.1); Sodium 136 mMol/L (136-145)
[2024-04-29 03:50] LABS: Albumin, Serum 3.5 gm/dL (3.4-4.8); BUN/Creatinine Ratio 32 Ratio (12-20); Calcium 8.6 mg/dL (8.3-10.6); Estimated Creatinine Clearance 48.6 mL/min (>60); eGFR > 60 See Note
[2024-04-29] MEDS: KCL 20 mEq/L in D5-LR 20 MEQ/1,000 ML BAG 250 MEQ IV (06:20)
[2024-04-29] MEDS: METOPROLOL SUCCINATE XL 25 MG TABCR 100 MG PO (08:12)
[2024-04-29] MEDS: CLOPIDOGREL BISULFATE 75 MG TABLET PO (08:13)
[2024-04-29] MEDS: Lisinopril 20 MG TABLET 40 MG PO (08:13)
[2024-04-29] MEDS: DULoxetine HCL 30 MG CAPSULE 60 MG PO (08:13)
[2024-04-29] MEDS: HEPARIN SOD INJ 5000 UNIT/ML VIAL SC ×2 (08:14→20:36)
[2024-04-29] MEDS: SENNA TABLET 1 TAB PO (08:14)
[2024-04-29 08:16] LABS: Basophils % (Auto) 0 % (0-2.5); Eosinophils % (Auto) 0 % (0-10); Hemoglobin 11.5 g/dL (12.0-16.0); Immature Granulocytes % (Auto) 0 % (0-0); Immature Granulocytes Auto 0.04 Thou/mm3 (0.00-0.00); Lymphocytes # (Auto) 1.9 Thou/mm3 (1.0-4.8); Lymphocytes % (Auto) 13 % (10-50); Mean Corpuscular HGB Conc 33.8 g/dl (31.0-37.0); Mean Corpuscular Hemoglobin 28.8 pg (25.0-35.0); Mean Corpuscular Volume 85 fL (80-100); Monocytes % (Auto) 7 % (0-12); Neutrophils # (Auto) 11.9 Thou/mm3 (1.8-7.7); Neutrophils % (Auto) 80 % (37-80); Nucleated Red Blood Cell % 0 /100 WBC (0); Platelet Count 215 Thou/mm3 (140-440); RDW Standard Deviation 43.8 fL (36.4-46.3); White Blood Count 14.9 Thou/mm3 (3.6-11.0)
[2024-04-29 08:37] LABS: Glucose Estimated Average 189 mg/dL (80-131); Hemoglobin A1C 8.2 % Hgb (4.8-6.0)
[2024-04-29 08:46] LABS: Albumin, Serum 3.4 gm/dL (3.4-4.8); Anion Gap 10 (7-16); BUN/Creatinine Ratio 25 Ratio (12-20); Blood Urea Nitrogen 20 mg/dL (9-23); Calcium 8.8 mg/dL (8.3-10.6); Calcium (Corrected) 9.3 mg/dL (8.5-10.1); Carbon Dioxide 19.5 mMol/L (20.0-31.0); Chloride 108 mMol/L (98-107); Creatinine (Component) 0.8 mg/dL (0.6-1.3); Estimated Creatinine Clearance 77.1 mL/min (>60); Glucose 153 mg/dL (74-106); Magnesium 1.8 mg/dL (1.6-2.6); Osmolality,Calculated 279 (275-295); Potassium 3.7 mMol/L (3.4-5.1); Sodium 137 mMol/L (136-145); eGFR > 60 See Note
[2024-04-29 08:48] LABS: Troponin I 0.688 ng/mL (0.0-0.045)
[2024-04-29 08:49] LABS: Phosphorous 0.8 mg/dL (2.4-5.1)
[2024-04-29] MEDS: POT PHOS 15 mMol in NS 250 ML 15 MMOL/250 ML BAG 62.5 MMOL IV (08:59)
[2024-04-29] MEDS: ASPIRIN EC 81 MG TABEC PO (09:54)
[2024-04-29] MEDS: NAPH,KPH MBDB 1 PACKET (1.5 GM) 2 PACKET PO ×2 (09:54→20:37)
[2024-04-29] MEDS: INSULIN GLARGINE (Lantus) 5 UNIT/0.05 ML (PER 5 UNITS) 20 UNIT SC (09:54)
--- NOTE | 2024-04-29 11:58 | ESPR_ITS ---
Documentation for date of: 04/29/24 Subjective Subjective Interval history: 04/29/2024; patient was seen and examined by bedside, doing fairly well, but has flat affect, answers questions with simple one-word, tachycardic around 120 in a.m. but patient has not received her home metoprolol, overnight anion gap closed once with bicarb increasing to 14, this a.m. renal panel was noted for second gap closure with bicarb levels at 20, patient was given 20 units of subcutaneous insulin and electrolytes were repleted, insulin drip was continued later on, patient's troponin was noted to be uptrending likely in settings of demand ischemia, EKG did not show any significant ST/T wave changes, will trend tropes. Patient was started on diet and is tolerating it well, patient will be downgraded to floor for continuation of care by hospitalist team. Exam Vital Signs Temp Pulse Resp BP Pulse Ox O2 Del Method 97.5 F 121 H 14 127/79 99 Room Air 04/29/24 01:15 04/29/24 11:00 04/29/24 11:00 04/29/24 11:00 04/29/24 11:00 04/29/24 01:15 Narrative Exam General Appearance: Ill appearing, mild acute distress laying comfortably in bed, answer questions with one word. HEENT: NC/AT, no scleral icterus, no conjunctival pallor, dry mucous membranes. Lungs: CTAB, no wheezes or crackles appreciated. CVS: Tachycardic, S1/S2 heard, no murmurs or rubs appreciated. ABD: Soft, non-tender, non-distended, BS + in all 4 quadrants. EXT: No deformity/edema/lesions/cyanosis/clubbing, radial pulses 2+ BL, DP pulses 2 + BL. SKIN: Skin exam normal without any rashes. Neuro: A&O x 3. No gross neurological deficits. Motor and sensory grossly intact in B/L UL and LL. Psych: Flat affect but responsive. Objective Labs 04/29/24 07:53 04/29/24 11:30 Labs: Laboratory Results - last 24 hr 04/28/24 04/28/24 04/28/24 22:00 22:42 23:01 WBC 21.0 H RBC 5.16 Hgb 15.0 Hct 44.8 MCV 87 MCH 29.1 MCHC 33.5 RDW Std Deviation 45.1 Plt Count 287 Neut % (Auto) 85 H Lymph % (Auto) 8 L [place] % (Auto) 6 Eos % (Auto) 0 Baso % (Auto) 0 Neut # (Auto) 17.8 H Lymph # (Auto) 1.8 [place] # (Auto) 1.3 H Eos # (Auto) 0.0 Baso # (Auto) 0.0 Immature Gran # (Auto) 0.09 H Absolute Nucleated RBC 0.00 Immature Gran % 0 Nucleated RBC % 0 PT 9.7 INR 0.9 APTT 25.9 Puncture Site Right Brachial ABG pH 7.29 L ABG pCO2 19 L* ABG pO2 122 H ABG HCO3 9 L* ABG O2 Saturation 98 ABG Base Excess -15 L FiO2 21 Sodium 131 L Potassium 4.5 Chloride 97 L Carbon Dioxide < 10.0 L* Anion Gap 24 H BUN 41 H Creatinine 1.5 H Estim Creat Clear Calc 32.4 L eGFR 39 L BUN/Creatinine Ratio 27 H Glucose [address] Glu mg/dL Hemoglobin A1c Calculated Osmolality 284 Lactic Acid Calcium 10.8 H Corrected Calcium 10.8 H Phosphorus 4.5 Magnesium 2.7 H Total Bilirubin 0.8 AST < 8 ALT < 7 L Alkaline Phosphatase 81 Lactate Dehydrogenase 247 H Total Creatine Kinase 56 Troponin I 0.450 H* B-Natriuretic Peptide 581 H* Total Protein 7.5 Albumin 4.3 Globulin 3.2 Albumin/Globulin Ratio 1.3 Beta-Hydroxybutyrate/Acetoacetate 6.4 H Procalcitonin 0.61 H TSH Ur Collection Type Urine Color Urine Clarity Urine pH Ur Specific [place] Urine Protein Urine Glucose (UA) Urine Ketones Urine Blood Urine Nitrite Urine Bilirubin Urine Urobilinogen (Auto) Ur Leukocyte Esterase Urine RBC Urine WBC Ur Squamous Epith Cells Urine Bacteria Hyaline Casts Urine Opiates Screen Urine Fentanyl Screen Ur Barbiturates Screen U Amphetamin/Meth Scrn U Benzodiazepines Scrn U Cocaine Metab Screen U Marijuana (THC) Screen 04/29/24 04/29/24 04/29/24 00:55 01:19 02:51 WBC RBC Hgb Hct MCV MCH MCHC RDW Std Deviation Plt Count Neut % (Auto) Lymph % (Auto) [place] % (Auto) Eos % (Auto) Baso % (Auto) Neut # (Auto) Lymph # (Auto) [place] # (Auto) Eos # (Auto) Baso # (Auto) Immature Gran # (Auto) Absolute Nucleated RBC Immature Gran % Nucleated RBC % PT INR APTT Puncture Site ABG pH ABG pCO2 ABG pO2 ABG HCO3 ABG O2 Saturation ABG Base Excess FiO2 Sodium 136 Potassium 4.1 Chloride 108 H Carbon Dioxide 14.0 L* Anion Gap 14 BUN 32 H Creatinine 1.0 D Estim Creat Clear Calc 48.6 L eGFR > 60 BUN/Creatinine Ratio 32 H Glucose [address] Glu mg/dL Hemoglobin A1c Calculated Osmolality 279 Lactic Acid 1.3 Calcium 8.6 D Corrected Calcium 9.0 D Phosphorus 1.7 L Magnesium 2.1 Total Bilirubin AST ALT Alkaline Phosphatase Lactate Dehydrogenase Total Creatine Kinase Troponin I B-Natriuretic Peptide Total Protein Albumin 3.5 D Globulin Albumin/Globulin Ratio Beta-Hydroxybutyrate/Acetoacetate Procalcitonin TSH Ur Collection Type Clean Catch Urine Color Colorless A Urine Clarity Clear Urine pH 5.5 Ur Specific [place] 1.028 Urine Protein Trace Urine Glucose (UA) 4+ A Urine Ketones 4+ A Urine Blood Negative Urine Nitrite Negative Urine Bilirubin Negative Urine Urobilinogen (Auto) Negative Ur Leukocyte Esterase Negative Urine RBC < 1 Urine WBC 2 Ur Squamous Epith Cells < 1 Urine Bacteria None Hyaline Casts < 1 Urine Opiates Screen Negative Urine Fentanyl Screen Negative Ur Barbiturates Screen Negative U Amphetamin/Meth Scrn Negative U Benzodiazepines Scrn Negative U Cocaine Metab Screen Negative U Marijuana (THC) Screen Positive A 04/29/24 07:53 WBC 14.9 H D RBC 4.00 Hgb 11.5 L D Hct 34.0 L D MCV 85 MCH 28.8 MCHC 33.8 RDW Std Deviation 43.8 Plt Count 215 D Neut % (Auto) 80 Lymph % (Auto) 13 [place] % (Auto) 7 Eos % (Auto) 0 Baso % (Auto) 0 Neut # (Auto) 11.9 H Lymph # (Auto) 1.9 [place] # (Auto) 1.0 H Eos # (Auto) 0.0 Baso # (Auto) 0.0 Immature Gran # (Auto) 0.04 H Absolute Nucleated RBC 0.00 Immature Gran % 0 Nucleated RBC % 0 PT INR APTT Puncture Site ABG pH ABG pCO2 ABG pO2 ABG HCO3 ABG O2 Saturation ABG Base Excess FiO2 Sodium 137 Potassium 3.7 Chloride 108 H Carbon Dioxide 19.5 L Anion Gap 10 BUN 20 Creatinine 0.8 Estim Creat Clear Calc 77.1 eGFR > 60 BUN/Creatinine Ratio 25 H Glucose [address] Glu mg/dL 189 H Hemoglobin A1c 8.2 H Calculated Osmolality 279 Lactic Acid Calcium 8.8 Corrected Calcium 9.3 Phosphorus 0.8 L* Magnesium 1.8 Total Bilirubin AST ALT Alkaline Phosphatase Lactate Dehydrogenase Total Creatine Kinase Troponin I 0.688 H* D B-Natriuretic Peptide Total Protein Albumin 3.4 Globulin Albumin/Globulin Ratio Beta-Hydroxybutyrate/Acetoacetate Procalcitonin TSH 0.40 L Ur Collection Type Urine Color Urine Clarity Urine pH Ur Specific [place] Urine Protein Urine Glucose (UA) Urine Ketones Urine Blood Urine Nitrite Urine Bilirubin Urine Urobilinogen (Auto) Ur Leukocyte Esterase Urine RBC Urine WBC Ur Squamous Epith Cells Urine Bacteria Hyaline Casts Urine Opiates Screen Urine Fentanyl Screen Ur Barbiturates Screen U Amphetamin/Meth Scrn U Benzodiazepines Scrn U Cocaine Metab Screen U Marijuana (THC) Screen ABG Interpretation ABG results: 04/28/24 22:42 ABG pH 7.29 L ABG pCO2 19 L* ABG pO2 122 H ABG HCO3 9 L* ABG O2 Saturation 98 ABG Base Excess -15 L Quality Measures Quality Measures none Assessment & Plan Assessment Current Active Medications: Generic Name Dose Route Start Last Admin Trade Name Freq PRN Reason Stop Dose Admin Acetaminophen 650 mg 04/29/24 00:01 Acetaminophen 325 Mg Tablet PO 05/29/24 00:00 Q6H PRN Fever >101.5 Acetaminophen 650 mg 04/29/24 00:01 Acetaminophen 325 Mg Tablet PO 05/29/24 00:00 Q6H PRN PAIN SCALE 1-3 (mild Aspirin 81 mg 04/29/24 09:30 04/29/24 09:54 Aspirin Ec 81 Mg Tabec PO 05/29/24 09:29 81 mg QDAY GIOVANNA Administration Atorvastatin Calcium 40 mg 04/29/24 21:00 Atorvastatin Calcium 20 Mg Tablet PO 05/29/24 20:59 HS GIOVANNA Clopidogrel Bisulfate 75 mg 04/29/24 09:00 04/29/24 08:13 Clopidogrel Bisulfate 75 Mg Tablet PO 05/29/24 08:59 75 mg QDAY GIOVANNA Administration Dextrose 25 ml 04/28/24 23:56 Dextrose 50%-Water Inj 50 Ml Syringe IV [id number] PRN Blood Sugar - Low Duloxetine HCl 60 mg 04/29/24 09:00 04/29/24 08:13 Duloxetine Hcl 30 Mg Capsule PO 05/29/24 08:59 60 mg QDAY GIOVANNA Administration Heparin Sodium (Porcine) 5,000 unit 04/29/24 09:00 04/29/24 08:14 Heparin Sod Inj 5000 Unit/Ml Vial SC 05/13/24 08:59 5,000 unit Q12HR GIOVANNA Administration Insulin Human Regular 100 unit in 100 mls @ 5.216 mls/hr 04/28/24 23:25 04/29/24 10:55 Myxredlin IV 05/28/24 23:24 0 unit/kg/hr .[id number] PRN 0 mls/hr PER PROTOCOL Titration Protocol 0.1 UNIT/KG/HR Potassium Chloride 10 meq in 100 mls @ 100 mls/hr 04/28/24 23:56 04/29/24 04:35 Kcl Ivpb IV 05/28/24 23:55 100 mls/hr .Q1H PRN Administration IF POTASSIUM LESS THAN 3.3 Magnesium Sulfate 2 gm in 50 mls @ 25 mls/hr 04/28/24 23:56 Magnesium Sulfate Ivpb IV 05/28/24 23:55 .Q2H PRN PER DKA PROTOCOL Insulin Human Regular 100 unit 100 mls @ 5.216 mls/hr 04/28/24 23:56 / IV Miscellaneous Supplies IV 05/28/24 23:55 .[id number] PRN PER PROTOCOL Protocol 0.1 UNIT/KG/HR Dextrose/Lactated Ringer's 1,000 mls @ 250 mls/hr 04/28/24 23:56 04/29/24 02:13 D5-Lr IV 05/28/24 23:55 250 mls/hr .Q4H PRN Administration PER PROTOCOL Lactated Ringer's 1,000 mls @ 250 mls/hr 04/28/24 23:56 Lactated Ringers IV 04/29/24 23:55 .Q4H PRN PER PROTOCOL Potassium Chloride 20 meq/ 1,010 mls @ 250 mls/hr 04/28/24 23:56 Lactated Ringer's IV 05/28/24 23:55 .Q4H3M PRN K LEVEL 3.3 TO 5.3mM/L Potassium Chloride 40 meq/ 1,020 mls @ 250 mls/hr 04/28/24 23:56 Lactated Ringer's IV 05/28/24 23:55 .Q4H5M PRN K LEVEL < 3.3 mM/L Potassium Chloride 40 meq/ 1,020 mls @ 250 mls/hr 04/28/24 23:56 Dextrose/Lactated Ringer's IV 05/28/24 23:55 .Q4H5M PRN K LEVEL < 3.3mM/L Potassium Cl/Dextrose/Lact Ringer's 20 meq in 1,000 mls @ 250 mls/hr 04/28/24 23:56 04/29/24 09:00 Kcl 20 Meq/L In D5-Lr IV 05/28/24 23:55 0 mls/hr .Q4H PRN Infusion K LEVEL 3.3 TO 5.3 mM/L Potassium Chloride 10 meq in 100 mls @ 50 mls/hr 04/28/24 23:56 04/29/24 02:12 Kcl Ivpb IV 05/28/24 23:55 50 mls/hr PRN PRN Administration K LEVEL 3.3 to 5.3 & BG > 200 Potassium Phosphate 15 mmol in 250 mls @ 62.5 mls/hr 04/28/24 23:56 Pot Phos 15 Mmol In Ns 250 Ml IV 05/28/24 23:55 PRN PRN Phosphate <= 1mg/dL Sodium Phosphate 15 mmol/ 255 mls @ 62.5 mls/hr 04/28/24 23:56 Sodium Chloride IV 05/28/24 23:55 .Q4H5M PRN Phosphate <= 1mg/dL and K> than 5.3 Ceftriaxone Sodium/Dextrose 50 mls @ 100 mls/hr 04/29/24 21:00 Rocephin/D5w 1gm Iv Premix IV 05/06/24 00:25 HS GIOVANNA Potassium Phosphate 15 mmol in 250 mls @ 62.5 mls/hr 04/29/24 08:51 04/29/24 08:59 Pot Phos 15 Mmol In Ns 250 Ml IV 04/29/24 16:50 62.5 mls/hr Q4H GIOVANNA Administration Insulin Glargine 20 unit 04/29/24 09:15 04/29/24 09:54 Insulin Glargine (Lantus) 5 Unit/0.05 Ml (Per 5 Units) SC 05/29/24 09:14 20 unit QDAY GIOVANNA Administration Lisinopril 40 mg 04/29/24 09:00 04/29/24 08:13 Lisinopril 20 Mg Tablet PO 05/29/24 08:59 40 mg QDAY GIOVANNA Administration Metoprolol Succinate 100 mg 04/29/24 09:00 04/29/24 08:12 Metoprolol Succinate Xl 25 Mg Tabcr PO 05/29/24 08:59 100 mg QDAY GIOVANNA Administration Morphine Sulfate 2 mg 04/29/24 00:01 Morphine Sulf Inj 10 Mg/Ml Vial IVP 05/04/24 00:00 Q2H PRN PAIN SCALE 7-10 (Severe Ondansetron HCl 4 mg 04/29/24 00:01 Ondansetron Inj 2 Mg/Ml Inj 2 Ml IV 05/29/24 00:00 Q6H PRN NAUSEA OR VOMITING Protocol Pantoprazole Sodium 40 mg 04/29/24 00:05 04/29/24 08:13 Pantoprazole Inj 40 Mg Vial IVP 05/29/24 00:04 40 mg QDAY GIOVANNA Administration Potassium Phos/Sodium Phos 2 packet 04/29/24 09:30 04/29/24 09:54 Naph,[facility] Mbdb 1 Packet (1.5 Gm) PO 05/03/24 09:29 2 packet BID GIOVANNA Administration Sennosides 1 tab 04/29/24 09:00 04/29/24 08:14 Senna Tablet PO 05/29/24 08:59 1 tab QDAY GIOVANNA Administration Protocol Sodium Bicarbonate 50 ml 04/28/24 23:56 Sodium Bicarb Inj 8.4% Syr 50 Ml Syringe IV 05/28/24 23:55 PRN PRN For ph <= to 7.0 Tramadol HCl 50 mg 04/29/24 00:01 Tramadol Hcl 50 Mg Tablet PO 05/04/24 00:00 Q6HR PRN PAIN SCALE 4-6 (Moderate Plan 63-year-old female with past medical history significant for type 2 diabetes, hyperlipidemia, hypertension, CAD status post 1 cardiac stent in LAD, and [place], depression, anxiety, presented to the ED for having vomiting for the last 4 days admitted to ICU for further management of DKA. 04/29/2024; patient was seen and examined by bedside, doing fairly well, but has flat affect, answers questions with simple one-word, tachycardic around 120 in a.m. but patient has not received her home metoprolol, overnight anion gap closed once with bicarb increasing to 14, this a.m. renal panel was noted for second gap closure with bicarb levels at 20, patient was given 20 units of subcutaneous insulin and electrolytes were repleted, insulin drip was continued later on, patient's troponin was noted to be uptrending likely in settings of demand ischemia, EKG did not show any significant ST/T wave changes, will trend tropes. Patient was started on diet and is tolerating it well, patient will be downgraded to floor for continuation of care by hospitalist team. NEURO #Hx of CVA CVA in 2014 and 2018, and TIA in 2019 Currently A&O x 3, stable Patient states she stopped taking aspirin -Continue with Plavix 75mg QD #Hx of vertigo Patient takes home Meclizine as needed -Consider resuming if patient complaints of symptoms CARDIO #NSTEMI type II DDx: most likely due to demand ischemia 2/2 hypovolemic status Patient given a total of 2L NS and 1L LR bolus -Ordered EKG -Trend Troponin Q8h -Patient #Hx of CAD s/p LAD stent #Hx of HTN #Hx of HLD Elevated BNP of 581. Bedside echo shows EF of 55-60% -Continue with Plavix 75mg QD, Metoprolol Succinate 100mg QD, and Atorvastatin 40mg HS -Patient takes home Benzapril, and will start dose equivalent dose with Lisinopril -Last echo was in 10/11, and ordered repeat Echo -Patient underwent stent placment in 09/2023 and should be on DAPT but she has stopped taking her PULM No active issues GI/FEN #Intractable nausea -Continue with Zofran PRN -Will keep patient NPO for now -Started IV PPI for GI Ulcer prophylaxis RENAL #Diabetic ketoacidosis---Resolved. #Anion gap metabolic acidosis---Resolved. #Hypovolemic hyperosmolar hyponatremia---Resolved #Dehydration---Resolved. #Pre-renal RONNY---Resolved. In setting of dehydration 2/2 DKA. F/U daily renal panel. HEME/ONC No symptoms/signs of active infection. CXR/UA negative for infection. Reactive in setting of DKA. Trend daily labs. ENDO #Diabetic ketoacidosis---Resolved. #Severe hyperglycemia----Resovled. #Diabetes Mellitus #Diabetic Neuropathy Patient started on insulin glargine. Patient started on insulin sliding scale. F/U daily labs. Diabetic education once on floor. ID See above in Heme/Onc MSK #Hx of Muscle Spasms -Resume home Cyclobenzaprine when able PSYCH #Hx of Anxiety and Depression Patient has flat affect, minimally communicative, has significatnt decrease in PO intake. -Resumed home Duloxetine 60mg QD -Patient will need outpatient psych follow up. Health Maintenance: DVT prophylaxis: Heparin SC Diet: Cardiac diet [place]: - Lines: PIV CODE STATUS: Full code Disposition: Downgrade to hospitalist team. Plan of care discussed with attending Dr. Crane. Barney Benoit, PGY-3 Attending Provider Attestation/Addendum Patient seen and examined with resident. In brief this is 63-year-old female admitted to the ICU for DKA. She has been placed on DKA protocol with insulin drip and IV fluids. Labs were obtained every 4 hours. This morning she is awake alert and cooperative with exam. Normal body habitus and in no acute distress. Lungs clear to auscultation bilaterally heart rate regular and rhythmic. Her abdomen is soft nontender with no rebound or guarding and bowel sounds are present. She has no focal deficits. Her anion gap closed and she was transitioned to subcu insulin. Her home dose of long-acting insulin is 20 units of Levemir and she was started on 20 units. She was tolerating a p.o. diet and transferred to the floor team.
[2024-04-29 12:26] LABS: Albumin, Serum 3.8 gm/dL (3.4-4.8); Anion Gap 7 (7-16); BUN/Creatinine Ratio 21 Ratio (12-20); Blood Urea Nitrogen 15 mg/dL (9-23); Calcium 8.7 mg/dL (8.3-10.6); Calcium (Corrected) 8.9 mg/dL (8.5-10.1); Carbon Dioxide 21.1 mMol/L (20.0-31.0); Chloride 106 mMol/L (98-107); Creatinine (Component) 0.7 mg/dL (0.6-1.3); Estimated Creatinine Clearance 88.1 mL/min (>60); Glucose 141 mg/dL (74-106); Magnesium 1.8 mg/dL (1.6-2.6); Osmolality,Calculated 271 (275-295); Phosphorous 1.8 mg/dL (2.4-5.1); Sodium 134 mMol/L (136-145); eGFR > 60 See Note
[2024-04-29 15:16] LABS: Troponin I 0.661 ng/mL (0.0-0.045)
--- NOTE | 2024-04-29 16:32 | PD.RESEVENT ---
Documentation for date of: 04/29/24 Event Note Event Note: Patient is a 63-year-old female with past medical history of diabetes, hyperlipidemia, hypertension, CAD s/p cardiac stent, depression, anxiety admitted for diabetic ketoacidosis into ICU. Patient was treated with IV fluids and insulin as per protocol. DKA is resolved and patient is being downgraded to the floors for further management. IV insulin is converted to subcutaneous. Patient plan of care was discussed with the attending physician, Dr. Palacios and senior resident Dr. Yodit García, PGY1
[2024-04-29 17:51] LABS: Strep A Rapid Negative (Negative)
[2024-04-29 18:02] LABS: Influenza A Ag Negative; Influenza B Ag Negative
[2024-04-29] MEDS: ATORVASTATIN CALCIUM 20 MG TABLET 40 MG PO (20:37)
[2024-04-29] MEDS: ACETAMINOPHEN 325 MG TABLET 650 MG PO (20:43)
[2024-04-30] VITALS (8 sets, daily range): BP systolic 86–109; BP diastolic 63–75; PULSE 105–132; RESP 14–97; TEMP 36.1–36.9; O2SAT 94–96; BMI 17.9
[2024-04-30 05:49] LABS: Basophils % (Auto) 0 % (0-2.5); Eosinophils % (Auto) 0 % (0-10); Hematocrit 37.6 % (36.0-46.0); Hemoglobin 12.9 g/dL (12.0-16.0); Immature Granulocytes % (Auto) 0 % (0-0); Immature Granulocytes Auto 0.03 Thou/mm3 (0.00-0.00); Lymphocytes # (Auto) 2.9 Thou/mm3 (1.0-4.8); Lymphocytes % (Auto) 28 % (10-50); Mean Corpuscular HGB Conc 34.3 g/dl (31.0-37.0); Mean Corpuscular Hemoglobin 29.1 pg (25.0-35.0); Mean Corpuscular Volume 85 fL (80-100); Monocytes # (Auto) 0.7 Thou/mm3 (0.0-0.8); Monocytes % (Auto) 7 % (0-12); Neutrophils # (Auto) 6.7 Thou/mm3 (1.8-7.7); Neutrophils % (Auto) 65 % (37-80); Nucleated Red Blood Cell % 0 /100 WBC (0); Platelet Count 228 Thou/mm3 (140-440); RDW Standard Deviation 43.4 fL (36.4-46.3); Red Blood Count 4.44 Miln/mm3 (4.00-5.20); White Blood Count 10.3 Thou/mm3 (3.6-11.0)
[2024-04-30 06:21] LABS: Anion Gap 8 (7-16); BUN/Creatinine Ratio 23 Ratio (12-20); Blood Urea Nitrogen 9 mg/dL (9-23); Calcium 9.1 mg/dL (8.3-10.6); Carbon Dioxide 26.8 mMol/L (20.0-31.0); Chloride 100 mMol/L (98-107); Creatinine (Component) 0.4 mg/dL (0.6-1.3); Estimated Creatinine Clearance 113.4 mL/min (>60); Free T4 (Free Thyroxine) 1.29 ng/dL (0.89-1.76); Glucose 94 mg/dL (74-106); Osmolality,Calculated 268 (275-295); Potassium 3.4 mMol/L (3.4-5.1); Sodium 135 mMol/L (136-145); eGFR > 60 See Note
[2024-04-30] MEDS: ASPIRIN EC 81 MG TABEC PO (08:43)
[2024-04-30] MEDS: DULoxetine HCL 30 MG CAPSULE 60 MG PO (08:43)
[2024-04-30] MEDS: PANTOPRAZOLE 40 MG TABLET PO (08:43)
[2024-04-30] MEDS: CLOPIDOGREL BISULFATE 75 MG TABLET PO (08:43)
[2024-04-30] MEDS: NAPH,KPH MBDB 1 PACKET (1.5 GM) 2 PACKET PO ×2 (08:46→21:07)
[2024-04-30] MEDS: HEPARIN SOD INJ 5000 UNIT/ML VIAL SC ×2 (08:51→21:06)
[2024-04-30] MEDS: INSULIN GLARGINE (Lantus) 5 UNIT/0.05 ML (PER 5 UNITS) 16 UNIT SC (09:03)
--- NOTE | 2024-04-30 10:01 | PC.SS ---
Patient is alert/oriented. She resides with her son. Patient admitted for DKA. Patient is an ICU downgrade. Patient has hx: depression/anxiety. She states her p.c.p. manages this. Patient states she has hx: stroke/heart attacks. Patient states prior to hospitalization she was independent with ADL's. Patient uses [facility] off [address]. Patient p.c.p. is Dr. Daily/[facility]. Patient states she drives herself to appointments. D/c plan is to return home. Son is her alt medical decision maker.
[2024-04-30] MEDS: SODIUM CHLORIDE 0.9% 1000 ML 1,000 ML 125 ML IV (10:10)
--- NOTE | 2024-04-30 10:30 | EKG_ITS ---
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
[2024-04-30] MEDS: POTASSIUM CHLORIDE 20 mEq TABCR 40 MEQ PO (12:14)
[2024-04-30] MEDS: Magnesium Sulfate 2 GM Ivpb 2 GM/50 ML BAG IV (12:16)
[2024-04-30 12:37] LABS: Troponin I 0.552 ng/mL (0.0-0.045)
--- NOTE | 2024-04-30 15:01 | ESPR_ITS ---
Documentation for date of: 04/30/24 Subjective Subjective Interval history: Patient was seen and examined bedside. Patient was downgraded from the ICU yesterday after resolution of DKA. Reported that she was in compliant with her insulin and other medications. Denies any other complaints. On examination patient still appears dehydrated with dry mucous membranes. Blood pressure is 91/63 mmHg and pulse rate is 114/min. Labs showed potassium 3.4, and troponins were downtrending. Patient was given dose of 40 mill equivalents of oral potassium. Yesterday patient had an episode of low glucose of 69. Insulin glargine dose was decreased from 20 to 10 units which is her home dose. Cadet catheter was discontinued. Will monitor sugars and planning to discharge her tomorrow Exam Vital Signs Temp Pulse Resp BP Pulse Ox O2 Del Method 97.8 F 114 H 18 99/71 95 Room Air 04/30/24 12:00 04/30/24 14:50 04/30/24 14:50 04/30/24 12:00 04/30/24 12:00 04/30/24 12:00 Narrative Exam General: Awake. HEENT: Normocephalic, atraumatic, mucous membranes moist. Heart: Regular rate and rhythm, no murmurs. Lungs: Clear to auscultation with no wheezing or crackles. Abdomen: Soft, nondistended, nontender, positive bowel sounds. ?No guarding or rebound tenderness. Neurologic: Alert and oriented x3, no gross neurological deficit, and patient able to move all 4 extremities. Extremities: No edema. Skin: No rash or ecchymoses. Objective Labs 05/01/24 04:47 05/01/24 04:47 Labs: Laboratory Results - last 24 hr 04/29/24 04/29/24 04/30/24 14:02 17:15 04:22 WBC 10.3 RBC 4.44 Hgb 12.9 Hct 37.6 MCV 85 MCH 29.1 MCHC 34.3 RDW Std Deviation 43.4 Plt Count 228 Neut % (Auto) 65 Lymph % (Auto) 28 Reynolds % (Auto) 7 Eos % (Auto) 0 Baso % (Auto) 0 Neut # (Auto) 6.7 Lymph # (Auto) 2.9 Reynolds # (Auto) 0.7 Eos # (Auto) 0.0 Baso # (Auto) 0.0 Immature Gran # (Auto) 0.03 H Absolute Nucleated RBC 0.00 Immature Gran % 0 Nucleated RBC % 0 Sodium 135 L Potassium 3.4 D Chloride 100 Carbon Dioxide 26.8 Anion Gap 8 BUN 9 Creatinine 0.4 L Estim Creat Clear Calc 113.4 eGFR > 60 BUN/Creatinine Ratio 23 H Glucose 94 Calculated Osmolality 268 L Calcium 9.1 Troponin I 0.661 H* 0.740 H* Free T4 1.29 Influenza A (Rapid) Negative Influenza B (Rapid) Negative Group A Strep Rapid Negative 04/30/24 11:12 WBC RBC Hgb Hct MCV MCH MCHC RDW Std Deviation Plt Count Neut % (Auto) Lymph % (Auto) Reynolds % (Auto) Eos % (Auto) Baso % (Auto) Neut # (Auto) Lymph # (Auto) Reynolds # (Auto) Eos # (Auto) Baso # (Auto) Immature Gran # (Auto) Absolute Nucleated RBC Immature Gran % Nucleated RBC % Sodium Potassium Chloride Carbon Dioxide Anion Gap BUN Creatinine Estim Creat Clear Calc eGFR BUN/Creatinine Ratio Glucose Calculated Osmolality Calcium Troponin I 0.552 H* Free T4 Influenza A (Rapid) Influenza B (Rapid) Group A Strep Rapid ABG Interpretation ABG results: 04/28/24 22:42 ABG pH 7.29 L ABG pCO2 19 L* ABG pO2 122 H ABG HCO3 9 L* ABG O2 Saturation 98 ABG Base Excess -15 L Quality Measures Quality Measures none Assessment & Plan Assessment Current Active Medications: Generic Name Dose Route Start Last Admin Trade Name Freq PRN Reason Stop Dose Admin Acetaminophen 650 mg 04/29/24 00:01 Acetaminophen 325 Mg Tablet PO 05/29/24 00:00 Q6H PRN Fever >101.5 Acetaminophen 650 mg 04/29/24 00:01 04/29/24 20:43 Acetaminophen 325 Mg Tablet PO 05/29/24 00:00 650 mg Q6H PRN Administration PAIN SCALE 1-3 (mild Aspirin 81 mg 04/29/24 09:30 04/30/24 08:43 Aspirin Ec 81 Mg Tabec PO 05/29/24 09:29 81 mg QDAY GIOVANNA Administration Atorvastatin Calcium 40 mg 04/29/24 21:00 04/29/24 20:37 Atorvastatin Calcium 20 Mg Tablet PO 05/29/24 20:59 40 mg HS GIOVANNA Administration Clopidogrel Bisulfate 75 mg 04/29/24 09:00 12/11/24 08:43 Clopidogrel Bisulfate 75 Mg Tablet PO 05/29/24 08:59 75 mg QDAY GIOVANNA Administration Dextrose 25 ml 04/28/24 23:56 Dextrose 50%-Water Inj 50 Ml Syringe IV [id number] PRN Blood Sugar - Low Duloxetine HCl 60 mg 04/29/24 09:00 04/30/24 08:43 Duloxetine Hcl 30 Mg Capsule PO 05/29/24 08:59 60 mg QDAY GIOVANNA Administration Glucagon 1 mg 04/29/24 12:55 Glucagon Inj 1 Mg Vial IM Q15MIN PRN BG <70, and no IV access Heparin Sodium (Porcine) 5,000 unit 04/29/24 09:00 04/30/24 08:51 Heparin Sod Inj 5000 Unit/Ml Vial SC 05/13/24 08:59 5,000 unit Q12HR GIOVANNA Administration Ceftriaxone Sodium/Dextrose 50 mls @ 100 mls/hr 04/29/24 21:00 04/29/24 21:49 Rocephin/D5w 1gm Iv Premix IV 05/06/24 00:25 100 mls/hr HS GIOVANNA Administration Sodium Chloride 1,000 mls @ 125 mls/hr 04/30/24 09:53 04/30/24 10:10 Ns IV 04/30/24 17:52 125 mls/hr .Q8H ONE Administration Insulin Glargine 10 unit 05/01/24 09:00 Insulin Glargine (Lantus) 5 Unit/0.05 Ml (Per 5 Units) SC 05/31/24 08:59 QDAY [facility] Insulin Human Lispro 0 unit 04/29/24 17:00 04/30/24 11:17 Insulin Lispro (Admelog) 1 Unit/0.01 Ml Unit SC 05/29/24 16:59 Not Given ACHS [facility] Protocol Metoprolol Succinate 100 mg 04/29/24 09:00 04/30/24 08:49 Metoprolol Succinate Xl 25 Mg Tabcr PO 05/29/24 08:59 Not Given QDAY GIOVANNA Ondansetron HCl 4 mg 04/29/24 00:01 Ondansetron Inj 2 Mg/Ml Inj 2 Ml IV 05/29/24 00:00 Q6H PRN NAUSEA OR VOMITING Protocol Pantoprazole Sodium 40 mg 04/30/24 09:00 04/30/24 08:43 Pantoprazole 40 Mg Tablet PO 05/29/24 00:04 40 mg QDAY GIOVANNA Administration Potassium Phos/Sodium Phos 2 packet 04/29/24 09:30 04/30/24 08:46 Naph,[facility] Mbdb 1 Packet (1.5 Gm) PO 05/03/24 09:29 2 packet BID GIOVANNA Administration Tramadol HCl 50 mg 04/29/24 00:01 Tramadol Hcl 50 Mg Tablet PO 05/04/24 00:00 Q6HR PRN PAIN SCALE 4-6 (Moderate Plan 63-year-old female with past medical history of type 2 diabetes mellitus, hyperlipidemia, hypertension, CAD s/p cardiac stent, depression, anxiety admitted in the hospital for management of DKA. # DKA resolved # Type 2 diabetes mellitus on insulin, drug in complaint -Patient is on glargine 5 units subcutaneous twice daily and insulin lispro. -Patient is on oral Farxiga and metformin -Reported that she is in compliant with her medications. -Denies fever, shortness of breath, burning micturition. -Admitted in the ICU on 04/29/2024 for diabetic ketoacidosis which was resolved and downgraded to the floor on 04/29/2024 Plan -Started on glargine 10 units subcutaneous daily -Started on insulin sliding scale -Hypoglycemia protocol in place -Will adjust the insulin based on the sugars. # Tachycardia - even after despite volume resuscitation and on metoprolol 100mg, heart rate is between 110 to 120 bpm -Urine toxicology tested positive for marijuana -Likely withdrawal from marijuana as patient is having other symptoms of anxiety, irritability. -will monitor her rate and manage accodingly. # Elevated troponins, type II In the setting of diabetic ketoacidosis, demand ischemia -Patient denies complaints of chest pain, shortness of breath -Troponin trending was done, levels are downtrending. # CAD s/p PCI # History of CVA and TIA # History of hyperlipidemia -Patient is on aspirin, Plavix, atorvastatin at home -Resumed her home medications. Hospital Maintenance: Dispo: medtele DVT ppx: Heparin GI ppx: protonix Diet; low carb IV lines:peripheral Code status:Full Patient plan of care was discussed with the attending physician, Dr. Palacios and senior resident Dr. Yodit García, PGY1 Attending Provider Attestation/Addendum I reviewed labs, imaging, EKG, home medications and prior available records. Face to face evaluation was performed by me. I have personally examined the patient and discussed assessment and plan with the IM team. I reviewed the resident note and agree with the plan with exceptions as below. DKA: Resolved. She is downgraded from ICU. Likely in the setting of medication noncompliance. Started insulin Lantus plus sliding scale insulin. Monitor fingersticks. Counseled the patient regarding the importance of medication compliance. SIRS: She is tachycardic and borderline hypotensive likely from dehydration. Continue IV fluids. Monitor vital signs closely. Management of diabetes as above. Hypoglycemia: She had an episode of hypoglycemia for which her nightly lispro sliding scale on 04/29 was held. Her glucose level is WNL on the morning of 04/30. Continue to monitor fingersticks. Uncontrolled diabetes mellitus with hyperglycemia: Insulin-dependent. Ensure medication compliance. Management as above. CAD/non-STEMI: Her troponin was elevated upon admission but peaked. Resume aspirin Plavix and atorvastatin. Consulted cardiology.
[2024-04-30] MEDS: cefTRIAXone/D5w 1gm IV premix 50 ML IV (21:06)
[2024-04-30] MEDS: ATORVASTATIN CALCIUM 20 MG TABLET 40 MG PO (21:06)
[2024-04-30] MEDS: INSULIN LISPRO (AdmeLOG) 1 UNIT/0.01 ML UNIT SC (21:07)
[2024-05-01] VITALS (7 sets, daily range): BP systolic 95–122; BP diastolic 63–93; PULSE 92–115; RESP 13–100; TEMP 36–36.7; O2SAT 95–100; BMI 18.2
[2024-05-01 05:50] LABS: Basophils % (Auto) 0 % (0-2.5); Eosinophils % (Auto) 0 % (0-10); Hematocrit 36.2 % (36.0-46.0); Immature Granulocytes % (Auto) 0 % (0-0); Immature Granulocytes Auto 0.03 Thou/mm3 (0.00-0.00); Lymphocytes # (Auto) 2.6 Thou/mm3 (1.0-4.8); Lymphocytes % (Auto) 28 % (10-50); Mean Corpuscular HGB Conc 33.1 g/dl (31.0-37.0); Mean Corpuscular Volume 87 fL (80-100); Monocytes # (Auto) 0.7 Thou/mm3 (0.0-0.8); Monocytes % (Auto) 7 % (0-12); Neutrophils % (Auto) 64 % (37-80); Nucleated Red Blood Cell % 0 /100 WBC (0); Platelet Count 230 Thou/mm3 (140-440); RDW Standard Deviation 46.2 fL (36.4-46.3); Red Blood Count 4.14 Miln/mm3 (4.00-5.20); White Blood Count 9.3 Thou/mm3 (3.6-11.0)
[2024-05-01 06:18] LABS: Anion Gap 9 (7-16); BUN/Creatinine Ratio 20 Ratio (12-20); Blood Urea Nitrogen 8 mg/dL (9-23); Calcium 8.8 mg/dL (8.3-10.6); Carbon Dioxide 27.5 mMol/L (20.0-31.0); Chloride 102 mMol/L (98-107); Creatinine (Component) 0.4 mg/dL (0.6-1.3); Estimated Creatinine Clearance 115.8 mL/min (>60); Glucose 89 mg/dL (74-106); Osmolality,Calculated 272 (275-295); Phosphorous 3.9 mg/dL (2.4-5.1); Potassium 3.8 mMol/L (3.4-5.1); Sodium 138 mMol/L (136-145); eGFR > 60 See Note
[2024-05-01] MEDS: NAPH,KPH MBDB 1 PACKET (1.5 GM) 2 PACKET PO (08:59)
[2024-05-01] MEDS: ASPIRIN EC 81 MG TABEC PO (08:59)
[2024-05-01] MEDS: HEPARIN SOD INJ 5000 UNIT/ML VIAL SC (08:59)
[2024-05-01] MEDS: PANTOPRAZOLE 40 MG TABLET PO (08:59)
[2024-05-01] MEDS: DULoxetine HCL 30 MG CAPSULE 60 MG PO (08:59)
[2024-05-01] MEDS: CLOPIDOGREL BISULFATE 75 MG TABLET PO (08:59)
[2024-05-01] MEDS: METOPROLOL SUCCINATE XL 25 MG TABCR 100 MG PO (09:00)
[2024-05-01] MEDS: INSULIN GLARGINE (Lantus) 5 UNIT/0.05 ML (PER 5 UNITS) 6 UNIT SC (09:20)
[2024-05-01] MEDS: guaiFENesin/DM TABLET 1 EACH PO (11:25)
--- NOTE | 2024-05-01 13:02 | ESCONSULT_ITS ---
RE: RAUL REYES : 1960 DATE OF CONSULTATION: 04/30/2024 CONSULTING PHYSICIAN: Hospitalist REASON FOR CONSULTATION: Evaluation of elevated troponin. The patient with DKA, known history of CAD with stent placement. HISTORY OF PRESENT ILLNESS: The patient is known to me. She is a 63-year-old female with a longstanding history of hypertension, diabetes mellitus with history of DKA, several admissions, has had a history of coronary artery disease, stent placement in the left anterior descending artery initially on 08/29/2021, 2.7 x 24 stent was placed in 2021 more than 2 years ago, subsequently had another episode of DKA in 09/2023 with troponin elevation at that time up to 4 concern and coronary angiogram showed all the stents were patent at that time LAD stent and rest of the coronary arteries were normal. Left ventricular function is also normal. The patient has a history of recurrent DKA episodes, presented to the hospital once again with shortness of breath, epigastric discomfort and found to have diabetic ketoacidosis and treated and improved. The patient was admitted to the hospital initially on 04/28/2024. Troponin was slightly elevated and troponin has come down since then, but definitely lower than previous admission. The peak troponin is 0.74 now come to 0.55. EKG is unremarkable. The patient is not having any chest pain whatsoever. No shortness of breath. EKG shows sinus tachycardia, nonspecific ST changes in inferior leads. The cardiac echocardiogram also performed on 04/29 showed normal left ventricular wall motion, EF 55% to 60%. Clinically, she is doing better, not having any chest pain or shortness of breath. ALLERGIES: NONE. MEDICATIONS: She has been treated with baby aspirin, IV antibiotics, statin, atorvastatin, and pantoprazole 40 mg daily. PAST MEDICAL HISTORY: CAD with stent placement in LAD in 2021, multiple hospitalizations with DKA, diabetes mellitus, hypertension, hypercholesterolemia. Last angiogram in 09/2023 negative, widely patent stent in coronary arteries. SOCIAL HISTORY: She is not a smoker. Does not drink alcoholic beverages. FAMILY HISTORY: Noncontributory. REVIEW OF SYSTEMS: CARDIOVASCULAR: No chest pain. Mild shortness of breath. No orthopnea or PND. GASTROINTESTINAL: No history of nausea or vomiting. GENITOURINARY: No history of frequency or dysuria. PHYSICAL EXAMINATION: GENERAL: Thin-built female, alert, awake, in no acute distress. VITAL SIGNS: Blood pressure 127/70. Pulse rate is 80 and regular. Respirations 16. Temperature normal. HEENT: Head is atraumatic, normocephalic. Eyes normal. ENT normal. NECK: Supple. No JVD or carotid pulses felt with no bruits. CHEST: Symmetrical. LUNGS: Clear. HEART: S1, S2 regular. S4 gallop heard. ABDOMEN: Thin and soft. EXTREMITIES: No edema. GENITOURINARY AND RECTAL: Not performed. NEUROLOGIC: Normal. LABORATORY DATA: Electrocardiogram showed sinus rhythm, nonspecific ST changes. Cardiac enzyme slightly elevated came down. ASSESSMENT: 1. Coronary artery disease with known stent placement, stable. 2. Troponin elevation, type 2 troponin due to diabetic ketoacidosis, not due to myocardial infarction. 3. Diabetic ketoacidosis, improving. 4. Hypercholesterolemia. RECOMMENDATIONS: I strongly recommend the patient to be good on diabetes management. The patient has multiple hospitalizations with DKA. Every time she has DKA, troponin was elevated, but this time much lower. I doubt very much she has acute coronary syndrome, hence, we treat her just with regular medication aspirin, but no need to treat it as acute myocardial infarction. DT: 12:19:51 TT: 13:00:00 Ref: [id number] - TID: [id number]
--- NOTE | 2024-05-01 15:15 | PD.ADDDSCHGE ---
Addendum Discharge Addendum Date of report being addended: 05/01/24 Narrative: I reviewed labs, imaging, EKG, home medications and prior available records. Face to face evaluation was performed by me. I have personally examined the patient and discussed assessment and plan with the IM team. I reviewed the resident note and agree with the plan with exceptions as below. DKA: Resolved. She is downgraded from ICU. Likely in the setting of medication noncompliance. Started insulin Lantus plus sliding scale insulin. Monitor fingersticks. Counseled the patient regarding the importance of medication compliance. SIRS: Resolved. She was tachycardic and borderline hypotensive likely from dehydration. Status post IV fluids. Hypoglycemia: She had an episode of hypoglycemia for which her nightly lispro sliding scale on 04/29 was held. Her glucose level is WNL on the morning of 04/30. Continue to monitor fingersticks. Uncontrolled diabetes mellitus with hyperglycemia: Insulin-dependent. Ensure medication compliance. Will discharge on 6 units of Lantus plus Farxiga plus metformin. Monitor fingersticks as outpatient. Follow-up with PCP/endocrinology. CAD/non-STEMI: Her troponin was elevated upon admission but peaked. Resume aspirin Plavix and atorvastatin. Consulted cardiology. Recommended to continue medical management. Outpatient follow-up with cardiology. Time spent is 40 minutes. More than 50% of the time was spent on patient education and coordination of care.
--- NOTE | 2024-05-01 16:52 | PD.RESDS ---
Planned Discharge Date 05/01/24 DS: Providers Provider Date of admission: 04/28/24 23:18 Primary care physician: REJI Sorto Admitting Provider: Ellis Skelton MD Attending Provider on Admission: Dave Palacios MD Consults: 04/28/24 23:57 Referral Registered Dietitian Routine Comment: 04/30/24 09:52 Referral Physical Therapy Routine Comment: Physician Instructions: 04/30/24 10:31 Consult to Cardiology Routine Comment: elevated troponins Consulting Provider: Hyun Wakefield Attending Provider on DC: Conor García MD Discharging Provider: Conor García MD DS: Diagnosis Problem List Completed Was Problem List Reviewed/Reconciled?: Yes Hospital Course Hospital Course Hospital course: A 63-year-old female with past medical history significant for type 2 diabetes, hyperlipidemia, hypertension, CAD status post 1 cardiac stent in LAD, and AL, depression, anxiety, presented to the ED for having vomiting for the last 4 days and diagnosed to have diabetic ketoacidosis secondary to poor drug compliance. Urine toxicology tested positive for marijuana. labs at the time of admission showed sodium 131, bicarb <10, anion gap 24, BUN 41, creatinine 1.5, glucose 313. A1c is 8.2. Patient was initially admitted in the ICU for further treatment of DKA and later downgraded to floors after resolution of DKA and RONNY for further management. Patient was initially started on insulin glargine 20 units daily but patient was found to have hypoglycemic episodes for which the dose was decreased to 6 units. Patient was discharged to home with the following medications and recommendations -Follow-up with PCP within 1 week of discharge. If you do not have appointment, please follow-up with the [facility] for [facility] and complex care with Dr. García. Call [phone] to make an appointment. -started on insulin degludec 6 units and held insulin lispro and glargine -Stopped metoprolol tartarate and started on metoprolol succinate 100mg -Take medications as prescribed. -Return to ED if symptoms persist or return # DKA resolved # Type 2 diabetes mellitus on insulin, drug in complaint # Tachycardia # Elevated troponins, type II # CAD s/p PCI # History of CVA and TIA # History of hyperlipidemia # Marijuana abuse Patient plan of care was discussed with the attending physician, Dr. Palacios and senior resident Dr. Kuldeep García, PGY1 Time Spent with Patient Time attestation: Total time spent providing and/or coordinating discharge services: Time spent: Greater than 30 minutes Exam Vital Signs Temp Pulse Resp BP Pulse Ox O2 Del Method 97.7 F 97 17 118/93 H 100 Room Air 05/01/24 12:00 05/01/24 13:18 05/01/24 13:18 05/01/24 12:00 05/01/24 12:00 05/01/24 12:00 Narrative Exam General: Awake. HEENT: Normocephalic, atraumatic, mucous membranes moist. Heart: Regular rate and rhythm, no murmurs. Lungs: Clear to auscultation with no wheezing or crackles. Abdomen: Soft, nondistended, nontender, positive bowel sounds. ?No guarding or rebound tenderness. Neurologic: Alert and oriented x3, no gross neurological deficit, and patient able to move all 4 extremities. Extremities: No edema. Skin: No rash or ecchymoses. Discharge Plan Plan Patient Disposition: HOME (Self Care) Patient condition on transfer: Stable Care Plan Goals: -Follow-up with PCP within 1 week of discharge. If you do not have appointment, please follow-up with the regional hospital for respiratory and complex care with Dr. García. Call [phone] to make an appointment. -started on insulin degludec 6 units and held insulin lispro and glargine -Stopped metoprolol tartarate and started on metoprolol succinate 100mg -Take medications as prescribed. -Return to ED if symptoms persist or return Prescriptions/Referrals Prescriptions/Med Rec: New metoprolol succinate 100 mg tablet extended release 24 hr 100 mg PO QDAY 30 Days Qty: 30 0RF insulin degludec 100 unit/mL (3 mL) insulin pen 6 unit subcut QDAY 30 Days Qty: 1.8 0RF (DME) pen needle, diabetic [Pen Needle] 29 gauge x 1/2 needle See Rx Instructions .Route Qty: 100 0RF Rx Instructions: As directed Continued clopidogrel 75 MG tablet 1 tab PO QDAY Qty: 30 duloxetine 30 mg Capsule,Delayed Release(Dr/Ec) 30 mg PO BID Linzess 145 mcg capsule 145 mcg PO QDAY atorvastatin 40 mg tablet 40 mg PO QPM Qty: 30 0RF benazepril [Lotensin] 40 MG tablet 20 mg PO QDAY Qty: 0 0RF aspirin [Aspirin Childrens] 81 mg Tablet,Chewable 81 mg PO QDAY Januvia 100 mg tablet 100 mg PO QDAY omeprazole 40 mg capsule,delayed release(DR/EC) 40 mg PO BID Qty: 30 0RF (DME) FreeStyle Reese 3 Sensor Device See Rx Instructions .Route Qty: 2 2RF Rx Instructions: As directed metoclopramide HCl [Reglan] 10 mg tablet 10 mg PO Q6H PRN (Reason: nausea and vomiting) Qty: 60 2RF Held gabapentin 600 mg tablet 600 mg PO TID Hold Instructions: Resume on 05/15/24. Follow up with PCP on when to resume insulin lispro 100 unit/mL insulin pen See Rx Instructions .ROUTE .COMPLEX Qty: 3 0RF Hold Instructions: Resume on 05/15/24. Hold until advised to resume by PCP, and also check your blood sugars Rx Instructions: Please administer 3 times daily before meals and at bedtime per moderate sliding scale. Please provide with needles and caps. Discontinued Levemir FlexTouch U100 Insulin 100 UNIT/1 ML insulin pen 20 unit SQ QAM Qty: 0 0RF metoprolol tartrate 25 mg Tablet 50 mg PO BID Qty: 60 0RF pantoprazole [Protonix] 40 mg tablet,delayed release (DR/EC) 40 mg PO QDAY Qty: 30 1RF Referrals: Cleopatra Daily FNP [Primary Care Provider] - Patient/Caregiver Discharge Instructions Education Materials: Diabetes Learn Serve Portion Size, Diabetes: Meal Planning, Diabetes Tracking Your Fitness ... Print Language: Algerian Stand Alone Forms: Olga Award Info., Patient Portal Info Letter Discharge Order Discharge Orders: Discharge (Routine); Ordered 05/01/24 Ordered By: Conor García Quality Discharge Quality Measures VTE prophylaxis Attestestation Attestation I reviewed labs, imaging, EKG, home medications and prior available records. Face to face evaluation was performed by me. I have personally examined the patient and discussed assessment and plan with the IM team. I reviewed the resident note and agree with the plan with exceptions as below. DKA: Resolved. She is downgraded from ICU. Likely in the setting of medication noncompliance. Started insulin Lantus plus sliding scale insulin. Monitor fingersticks. Counseled the patient regarding the importance of medication compliance. SIRS: Resolved. She was tachycardic and borderline hypotensive likely from dehydration. Status post IV fluids. Hypoglycemia: She had an episode of hypoglycemia for which her nightly lispro sliding scale on 04/29 was held. Her glucose level is WNL on the morning of 04/30. Continue to monitor fingersticks. Uncontrolled diabetes mellitus with hyperglycemia: Insulin-dependent. Ensure medication compliance. Will discharge on 6 units of Lantus plus Farxiga plus metformin. Monitor fingersticks as outpatient. Follow-up with PCP/endocrinology. CAD/non-STEMI: Her troponin was elevated upon admission but peaked. Resume aspirin Plavix and atorvastatin. Consulted cardiology. Recommended to continue medical management. Outpatient follow-up with cardiology. Time spent is 40 minutes. More than 50% of the time was spent on patient education and coordination of care.
== END 2024-05-01 15:02 | disposition home or self-care (01) | DRG 637 ==
LOC: SERX 23:39 → SERHOLD 23:46 → S2SX 04-29 01:58 → S2NX 04-29 15:22
PROVIDERS: Registered Nurse General Practice; Student in an Organized Health Care Education/Training Program; Admitting Provider Internal Medicine; Emergency Provider Emergency Medicine; PCP Nurse Practitioner Family; Visit Provider Student in an Organized Health Care Education/Training Program
DX: E11.10 Type 2 diabetes mellitus with ketoacidosis without coma (principal); I21.A1 Myocardial infarction type 2; E87.1 Hypo-osmolality and hyponatremia; N17.9 Acute kidney failure, unspecified; R65.10 Systemic inflammatory response syndrome (SIRS) of non-infectious origin without acute organ dysfunction; E86.0 Dehydration; E86.1 Hypovolemia; E11.40 Type 2 diabetes mellitus with diabetic neuropathy, unspecified; I25.10 Atherosclerotic heart disease of native coronary artery without angina pectoris; I10 Essential (primary) hypertension; F32.A Depression, unspecified; F41.9 Anxiety disorder, unspecified; M62.838 Other muscle spasm; E78.00 Pure hypercholesterolemia, unspecified; I95.9 Hypotension, unspecified; E11.649 Type 2 diabetes mellitus with hypoglycemia without coma; F12.10 Cannabis abuse, uncomplicated; Z86.73 Personal history of transient ischemic attack (TIA), and cerebral infarction without residual deficits; Z95.5 Presence of coronary angioplasty implant and graft; Z91.148 Patient's other noncompliance with medication regimen for other reason; Z87.440 Personal history of urinary (tract) infections; Z87.891 Personal history of nicotine dependence; Z79.82 Long term (current) use of aspirin; Z79.02 Long term (current) use of antithrombotics/antiplatelets; Z79.899 Other long term (current) drug therapy
CPT/HCPCS: 36415; 36600; 71045; 80048; 80053; 80069; 80307; 81001; 82010; 82550; 82803; 83036; 83605; 83615; 83735; 83880; 84100; 84145; 84439; 84443; 84484; 85025; 85610; 85730; 87040; 87081; 87502; 87651; 93005; 93306; 96374; 97162; 99291; J0696; J1643; J1815; J2405; J2470; J3475; J3480; J7030; J7120; J7121; J7999; A9270; J1644

== ENCOUNTER 2024-11-07 09:55 | Day surgery (SDC) | payer MEDICARE, MEDICAID, SELFPAY ==
[2024-11-07] VITALS (11 sets, daily range): BP systolic 96–129; BP diastolic 55–86; PULSE 80–113; RESP 12–20; TEMP 36.2–36.6; O2SAT 96–100; BMI 20.7
[2024-11-07] MEDS: SODIUM CHLORIDE 0.9% 500 ML 500 ML 20 ML IV (12:05)
[2024-11-07] MEDS: MIDAZOLAM INJ 1 MG/ML VIAL 2 ML (ASD USE ONLY) 2 MG IVP (12:11)
[2024-11-07] MEDS: fentaNYL CIT INJ 50 mCg/ML AMP 2ML (ASD USE ONLY) IVP (12:11)
[2024-11-07] MEDS: DiphenhydrAMINE INJ 50 MG/ML VIAL 25 MG IVP (12:11)
== END 2024-11-07 13:15 | disposition home or self-care (01) ==
PROVIDERS: PCP Physician Assistant; Referring Provider Specialist; Visit Provider Specialist
PROC: 0DBE8ZX Excision of Large Intestine, Via Natural or Artificial Opening Endoscopic, Diagnostic (ICD-10-PCS; CPT 45380; principal; 2024-11-07 11:00)
DX: K64.9 Unspecified hemorrhoids (principal)
CPT/HCPCS: 45378; J1200; J2250; J3010; J7999